=== PATIENT | male | born 1985 | race Caucasian/White ===

== ENCOUNTER → 2019-12-03 15:32 | Outpatient (REF) | payer OTHER, SELFPAY | LOC: ANHLAB 15:32 | PROVIDERS: PCP Internal Medicine; Visit Provider Nurse Practitioner | DX: L91.0 Hypertrophic scar (principal) | CPT/HCPCS: 88305 ==

== ENCOUNTER 2021-08-10 13:19 | Outpatient (CLI) | payer OTHER, SELFPAY ==
--- NOTE | 2021-08-14 12:13 | WPDHOLTEREM ---
Holter/Event Monitor Holter/Event Monitor Date of procedure: 08/10/21 Holter/Event Procedure: 48 Hr Holter Monitor Indications: Cardiac arrhythmia Conclusion: 1. 48 hour holter monitor on 08/10/21. 2. Underlying rhythm is sinus rhythm. HR range 63-119 bpm; average HR 87 bpm. 3. There are 312 premature supraventricular complexes. No supraventricular tachycardia. 4. There are 10 premature ventricular complexes. No ventricular tachycardia. 5. No sinoatrial or atrioventricular blocks. No significant pauses greater than 2 seconds. 6. No symptoms available for correlation.
== END 2021-08-10 13:20 | disposition home or self-care (01) ==
LOC: ANHCARD 13:22
PROVIDERS: PCP Internal Medicine; Visit Provider Internal Medicine
DX: I49.9 Cardiac arrhythmia, unspecified (principal)
CPT/HCPCS: 93225

== ENCOUNTER 2022-07-29 10:12 | Inpatient (IN) | payer OTHER, SELFPAY ==
[2022-07-29] VITALS (35 sets, daily range): BP systolic 98–141; BP diastolic 53–93; PULSE 82–102; RESP 8–27; TEMP 36.6–37.2; O2SAT 93–100; BMI 38.0
--- NOTE | ~2022-07-29 | XR_ITS ---
EXAMINATION: XR chest 1V INDICATION: Transient alteration of awareness TECHNIQUE: AP view of the chest is obtained. COMPARISON: None available FINDINGS: The lung volumes are low. No pleural effusion or pneumothorax. The cardiomediastinal silhou ette is normal. Calcified pulmonary nodules are consistent with old granulomatous disease. IMPRESSION: 1. No acute cardiopulmonary abnormality. Reviewed, dictated and finalized at location L.
--- NOTE | ~2022-07-29 | CT_ITS ---
EXAMINATION: CT brain wo con INDICATION: Transient alteration of awareness COMPARISON: None TECHNIQUE: Standard unenhanced head CT. The dose-length product (DLP) was 681.00 mGy-cm. The mA was a djusted according to patient size. Iterative reconstruction technique was employed. FINDINGS: There is no intracranial hemorrhage, acute infarction, or abnormal mass lesion. The ventric les are normal. There is no abnormal mass effect or midline shift. The gordon-white matter differentiat ion is normal. The basal cisterns are patent. The orbits are normal. There is mucosal thickening of t he ethmoidal air cells and right maxillary sinus. There are age-indeterminate comminuted nasal bone f ractures. IMPRESSION: 1. No acute intracranial abnormality. 2. Age indeterminate comminuted nasal bone fractures. 3. Sinus disease. Reviewed, dictated and finalized at location L.
--- NOTE | 2022-07-29 10:23 | ECG_ITS ---
Measurements Intervals Dameron Rate: 101 P: 5 NM: 178 QRS: 26 QRSD: 140 T: -17 QT: 344 QTc: 446 Interpretive Statements SINUS TACHYCARDIA RIGHT BUNDLE BRANCH BLOCK [120+ ms QRS DURATION, UPRIGHT V1, 40+ ms S IN I/aVL/V4/V5/V6] NO PREVIOUS ECG AVAILABLE FOR COMPARISON Electronically Signed On 07-29-2022 15:27:33 CDT by Edelmira Ferrara M.D.
[2022-07-29 10:47] LABS: Basophils Percent Auto 0.3 % (0.2-1.2); Eosinophils Absolute Auto 0.1 K/mm3 (0-0.3); Eosinophils Percent Auto 0.5 % (0-4.4); Hemoglobin 13.2 g/dL (14.0-18.0); Immature Granulocyte Absolute 0.02 K/mm3 (0.00-0.031); Immature Granulocyte Percent A 0.2 % (0-0.5); Lymphocytes Absolute Auto 0.56 K/mm3 (0.9-3.2); Lymphocytes Percent Auto 4.6 % (18.3-44.2); Mean Corpuscular Hemoglobin 28.4 pg (26-34); Mean Platelet Volume 11.1 fl (7.4-10.4); Monocytes Absolute Auto 0.7 K/mm3 (0.1-0.6); Monocytes Percent Auto 5.3 % (2.6-8.5); Neutrophils Absolute Auto 10.9 K/mm3 (1.3-6.7); Neutrophils Percent Auto 89.1 % (45.5-73.1); Platelet Count Result 267 k/mm3 (150-375); Red Blood Count 4.65 M/mm3 (4.6-6.20); Red Cell Distribution Width 13.2 % (11.5-14.5); White Blood Count 12.3 K/mm3 (4.5-10.0)
--- NOTE | 2022-07-29 11:03 | ED.GENADULT ---
HPI - General Adult General Chief complaint: Weakness Stated complaint: syncopal episode Time Seen by Provider: 07/29/22 10:30 Source: patient Mode of arrival: ambulatory Limitations: no limitations History of Present Illness HPI narrative: This is a 36-year-old male who presents to the ED with chief complaint of generalized weakness and near syncope. Patient states that he had a nasal surgery last week with Dr. Torres. he was feeling fine after that but in the last few days he has been feeling generally very tired and off. He does state that he has bruising around the eyes from this procedure as well as nasal swelling. Endorses nausea. Reports several episodes of vomiting over the last few days. States he feels very dehydrated. He reports an episode a few days ago where he was walking in the parking lot felt hot and had to go down to the ground. Denies any head injury or true syncope. Denies any current focal deficits or neurologic symptoms. Denies chest pain, shortness of breath, abdominal pain, diarrhea, urinary symptoms, cough. His application lead is Dr. Gallegos He states his sugars have been somewhat low lately because he has not been eating. Related Data Home Medications Medication Instructions Recorded Confirmed empagliflozin 10 mg tablet 10 mg PO DAILY 04/07/22 04/13/22 (Jardiance) tirzepatide 7.5 mg/0.5 mL 7.5 mg subcut WEEKLY 04/07/22 04/13/22 subcutaneous pen injector (Mounjaro) lisinopril 40 mg tablet 40 mg PO DAILY 04/13/22 04/13/22 Allergies Allergy/AdvReac Type Severity Reaction Status Date / Time cat dander Allergy Unknown Verified 07/29/22 18:15 Review of Systems Review of Systems: CONSTITUTIONAL: See HPI EYES: Denies visual changes, redness, or discharge. ENT: Denies rhinorrhea, congestion, sore throat, or otalgia. CARDIOVASCULAR: Denies chest pain, palpitations, or edema. RESPIRATORY: Denies cough or dyspnea. GASTROINTESTINAL: See HPI GENITOURINARY: Denies dysuria or hematuria. SKIN: Denies rash or itching. MUSCULOSKELETAL: Denies back pain, joint pain, or myalgia. NEUROLOGIC: See HPI PSYCHIATRIC: Denies anxiety or depression. [facility] Past Medical History Medical History Asthma Depression Encounter for monitoring testosterone replacement therapy Essential hypertension Hypercholesterolemia with hypertriglyceridemia Hypogonadism Insomnia Irregular heart beat Male hypogonadism Skin lesion of left external ear Type 2 diabetes mellitus without complication, with long-term current use of insulin Surgical History Surgical History (Updated 07/29/22 @ 13:51 by Misty Duran NP) H/O rhinoplasty Hx of tympanostomy tubes Family History Family History Father Hypertension Mother Hypertension Skin cancer Social History Social History (Updated 07/29/22 @ 13:52 by Misty Duran NP) 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 Appears dry. HEAD: Normocephalic, atraumatic. EYES: PERRLA and EOMI. raccoon eyes present. ENT: Nares clear, no rhinorrhea or epistaxis. Mucous membranes moist. Oropharynx without tonsillar hypertrophy exudate or other lesions. Mild nasal swelling. NECK: Supple. No adenopathy or masses. CHEST: No respiratory distress. Clear to auscultation. No wheezes rales or rhonchi HEART: Regular rate and rhythm. No murmur heard. Normal peripheral puls
[2022-07-29] MEDS: ONDANSETRON INJ 4 MG/2 ML VIAL IV PUSH ×2 (11:28→22:09)
[2022-07-29] MEDS: SODIUM CHLORIDE 0.9% IV 1,000 ML 999 ML IV CONT ×2 (11:28→11:56)
[2022-07-29 12:18] LABS: Alanine Aminotransferase 34 U/L (6-50); Albumin Level 4.7 g/dL (3.5-5.1); Alkaline Phosphatase 41 U/L (38-126); Anion Gap 11 mmol/L (8-16); Aspartate Amino Transferase 51 U/L (17-59); Bilirubin,Total 0.5 mg/dL (0.2-1.3); Blood Urea Nitrogen 95 mg/dL (9-20); Calcium 8.8 mg/dL (8.4-10.2); Carbon Dioxide 29 mmol/L (22-30); Chloride 93 mmol/L (98-107); Estimated CRCL calculation 29 ml/min; Estimated Glomerular Filt Rate 17; Glucose 245 mg/dL (65-110); Potassium 5.3 mmol/L (3.4-5.0); Sodium 133 mmol/L (137-145)
--- NOTE | 2022-07-29 13:49 | PM.IMHP ---
H&P: HPI History of Present Illness Date/Time: 07/29/22 13:49 Chief Complaint: Weakness Narrative: This is a 36-year-old male patient who recently had a rhinoplasty and a keloid removed from his left ear. The patient has bruising around his eyes. The patient stated that he has generalized weakness and had near syncopal episode today. The patient stated that his father within the last week and that he has not been eating or drinking very well. The patient is insulin-dependent diabetes the patient has been having some nausea as well. He had several episodes of vomiting over the last few days. He stated that he feels very dehydrated. He does have a continuous glucose monitor as well as an insulin pump. However he has not been wearing his continuous glucose monitor due to the cost of the product. The patient stated that he was walking in the parking lot and felt hot and had to sit down on the ground. He denies any head injury or a syncopal episode. No neurological deficits. He does see Dr. Gallegos as his pediatric oncologist. His white count is 12.3. H&H is 13.2 and 40.0. His creatinine is 4.1 which was previously 1.99 BUN is 95 previously 46. GFR cell 17 previously 44. His blood sugars 245. Potassium is 5.3. Sodium 133. The patient is being admitted to inpatient status on the date of service of 07/29/2022. Review of Systems Review of Systems: All systems reviewed & are unremarkable except as noted in HPI and below Constitutional: Constitutional: Reports as per HPI and Reports no additional constitutional complaints Eyes: Eyes: Reports as per HPI and Reports no additional eye complaints ENT: Reports system reviewed and no additional complaints, except as documented and Reports Normal hearing present Cardiovascular: Cardiovascular: Reports no additional cardiovascular complaints Respiratory: Respiratory: Reports no additional respiratory complaints and Reports no additional respiratory complaints Gastrointestinal: Gastrointestinal: Reports as per HPI and Reports no additional gastrointestinal complaints Musculoskeletal: Musculoskeletal: Reports no additional musculoskeletal complaints Integumentary/Breasts: Skin/Breast: Reports system reviewed and no additional complaints, except as docu and Reports as per HPI Neurologic: Reports system reviewed and no additional complaints, except as documented, Reports as per HPI and Reports Normal hearing present Psychiatric: Psychiatric: Reports no additional psychiatric complaints and Reports as per HPI Endocrine: Endocrine: Reports no additional endocrine complaints Hematologic/Lymphatic: Hematologic/Lymphatic: Reports no additional hematologic/lymphatic complaints Allergic/Immunologic: Allergic/Immunologic: Reports no additional allergic/immunologic complaints [facility] Past Medical History Medical History Asthma Depression Encounter for monitoring testosterone replacement therapy Essential hypertension Hypercholesterolemia with hypertriglyceridemia Hypogonadism Insomnia Irregular heart beat Male hypogonadism Skin lesion of left external ear Type 2 diabetes mellitus without complication, with long-term current use of insulin Surgical History Surgical History (Updated 07/29/22 @ 13:51 by Misty Duran NP) H/O rhinoplasty Hx of tympanostomy tubes Family History Family History Father Hypertension Mother Hypertension Skin cancer Social History Social History (Updated 07/29/22 @ 13:52 by Misty Duran NP) 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
[2022-07-29] MEDS: SODIUM CHLORIDE 0.9% IV 1,000 ML 125 ML IV CONT ×2 (14:50→22:09)
[2022-07-29 16:41] LABS: Appearance Urine Clear (Clear); Bacteria Urine None Seen /hpf; Bilirubin Urine Negative (Negative); Blood Urine Negative (Negative); Color Urine Yellow (Yellow); Glucose Urine UA 3+ mg/dL (Negative); Ketones Urine Negative (Negative); Leukocyte Esterase Ur Negative LEU/UL (Negative); Nitrate Urine Negative (Negative); Non Pathogenic Casts 0-2; Protein Urine Trace mg/dL (Negative); RBC Urine 0-2 /hpf (0-2); Specific Grav Ur 1.017 (1.001-1.035); Squamous Epithelial Cell Urine None seen /hpf (Few); Urobilinogen Urine 0.2 mg/dL (<2.0); WBC Urine 0-5 /hpf; pH Urine 5.5 (5.0-9.0)
[2022-07-29 16:49] LABS: Add Urine Microscopic? YES
--- NOTE | 2022-07-29 18:10 | ADMGEN ---
This patient, Harvey Camara, was admitted to Medical Room 341-01. Patient/family oriented to hospital policies and general routines including ID bracelet, bed and alarms, visiting hours, pain management, procedures, bathroom and other care routines, personal items, smoking policy, room service/diet, and visiting hours. Information on how to activate the Rapid Response Team has been discussed. Patient/Family are encouraged to report perceived risks to care and to ask questions if they do not understand what they are told or what they should do.
[2022-07-29 18:25] LABS: Glucose Point of Care 86 mg/dl (65-105)
[2022-07-29] MEDS: carvediloL 25 MG TABLET PO (20:34)
[2022-07-29] MEDS: traZODone HCL 50 MG TABLET 100 MG PO (20:35)
[2022-07-29] MEDS: GABAPENTIN 300 MG CAPSULE PO (20:35)
[2022-07-29] MEDS: TIZANIDINE HCL 4 MG TABLET PO (20:35)
[2022-07-29 20:52] LABS: Anion Gap 6 mmol/L (8-16); Blood Urea Nitrogen 81 mg/dL (9-20); Calcium 8.7 mg/dL (8.4-10.2); Carbon Dioxide 35 mmol/L (22-30); Chloride 98 mmol/L (98-107); Estimated CRCL calculation 41 ml/min; Estimated Glomerular Filt Rate 24; Glucose 113 mg/dL (65-110); Potassium 4.5 mmol/L (3.4-5.0); Sodium 139 mmol/L (137-145)
[2022-07-29 21:14] LABS: Hemoglobin A1C 7.4 % (<5.7)
[2022-07-29 21:36] LABS: Glucose Point of Care 108 mg/dl (65-105)
[2022-07-30] VITALS (7 sets, daily range): BP systolic 104–145; BP diastolic 77–90; PULSE 76–93; RESP 17–18; TEMP 36.6–37.1; O2SAT 98–100; BMI 38.0
[2022-07-30] MEDS: SODIUM CHLORIDE 0.9% IV 1,000 ML 125 ML IV CONT ×3 (05:39→22:59)
[2022-07-30 05:44] LABS: Basophils Absolute Auto 0.1 K/mm3 (0.0-0.1); Basophils Percent Auto 0.8 % (0.2-1.2); Eosinophils Absolute Auto 0.2 K/mm3 (0-0.3); Eosinophils Percent Auto 2.9 % (0-4.4); Hematocrit 39.1 % (42.0-52.0); Hemoglobin 12.2 g/dL (14.0-18.0); Immature Granulocyte Absolute 0.01 K/mm3 (0.00-0.031); Immature Granulocyte Percent A 0.2 % (0-0.5); Lymphocytes Absolute Auto 1.47 K/mm3 (0.9-3.2); Lymphocytes Percent Auto 23.6 % (18.3-44.2); Mean Corpuscular HGB Conc 31.2 g/dl (32-36); Mean Corpuscular Hemoglobin 27.5 pg (26-34); Mean Corpuscular Volume 88.1 fl (80-100); Mean Platelet Volume 10.6 fl (7.4-10.4); Monocytes Absolute Auto 0.4 K/mm3 (0.1-0.6); Monocytes Percent Auto 6.9 % (2.6-8.5); Neutrophils Absolute Auto 4.1 K/mm3 (1.3-6.7); Neutrophils Percent Auto 65.6 % (45.5-73.1); Platelet Count Result 232 k/mm3 (150-375); Red Blood Count 4.44 M/mm3 (4.6-6.20); Red Cell Distribution Width 13.2 % (11.5-14.5); White Blood Count 6.2 K/mm3 (4.5-10.0)
[2022-07-30 05:56] LABS: Lactic Acid Reflex 0.6 mmol/L (0.7-2.0)
[2022-07-30 05:59] LABS: Alanine Aminotransferase 31 U/L (6-50); Albumin Level 4.2 g/dL (3.5-5.1); Alkaline Phosphatase 31 U/L (38-126); Anion Gap 5 mmol/L (8-16); Aspartate Amino Transferase 53 U/L (17-59); Bilirubin,Total 0.4 mg/dL (0.2-1.3); Blood Urea Nitrogen 64 mg/dL (9-20); Calcium 8.7 mg/dL (8.4-10.2); Carbon Dioxide 35 mmol/L (22-30); Chloride 101 mmol/L (98-107); Estimated CRCL calculation 47 ml/min; Estimated Glomerular Filt Rate 28; Glucose 83 mg/dL (65-110); Magnesium 2.8 mg/dL (1.6-2.3); Potassium 4.4 mmol/L (3.4-5.0); Sodium 141 mmol/L (137-145)
[2022-07-30 06:52] LABS: Thyroid Stimulating Hormone Reflex 0.887 uIU/mL (0.465-4.68)
[2022-07-30 08:37] LABS: Glucose Point of Care 100 mg/dl (65-105)
[2022-07-30] MEDS: carvediloL 25 MG TABLET PO ×2 (08:40→20:29)
[2022-07-30] MEDS: ATORVASTATIN 40 MG TABLET 80 MG PO (08:41)
[2022-07-30] MEDS: GABAPENTIN 300 MG CAPSULE PO ×3 (08:41→17:01)
[2022-07-30] MEDS: amLODIPine BESYLATE 5 MG TABLET 10 MG PO (08:41)
[2022-07-30] MEDS: EMPAGLIFLOZIN 10 MG TABLET PO (08:41)
[2022-07-30] MEDS: OMEGA 3 POLYUNSAT FATTY ACIDS 1 GM CAP 4 GM PO (08:42)
[2022-07-30] MEDS: FENOFIBRATE NANOCRYSTALLIZED 145 MG TABLET PO (08:42)
[2022-07-30 12:02] LABS: Glucose Point of Care 110 mg/dl (65-105)
--- NOTE | 2022-07-30 13:30 | PM.IMPN ---
Progress Note: A&P Assessment and Plan (1) YESENIA (acute kidney injury): Code(s): N17.9 - Acute kidney failure, unspecified Status: Acute Assessment and Plan: Patient presented with overall weakness and near-syncope Patient admits not be eating or drinking as much as he should BUN creatinine elevated upon admission at 4.1 currently creatinine is 2.6 Could be an YESENIA or in acute on chronic kidney injury IV fluids currently going Seems to be getting better Avoid nephrotoxic medications Trend labs . (2) Essential hypertension: Code(s): I10 - Essential (primary) hypertension Status: Acute Assessment and Plan: Current blood pressure 132/77 Continue with Norvasc and carvedilol Hold hydrochlorothiazide lisinopril Trend blood pressure (3) Type 2 diabetes mellitus without complication, with long-term current use of insulin: Code(s): E11.9 - Type 2 diabetes mellitus without complications; Z79.4 - custodial (current) use of insulin Status: Acute Assessment and Plan: The patient has an insulin pump but cannot afford the continuous glucose monitor. A1c 7.4 Hold metformin Insulin per his pump Trend glucose Adjust therapy as indicated (4) Hypercholesterolemia with hypertriglyceridemia: Code(s): E78.2 - Mixed hyperlipidemia Status: Acute Assessment and Plan: Continue with atorvastatin and fenofibrate Continue with Swengel 3 (5) Depression: Qualifiers: Depression Type: unspecified Qualified Code(s): F32.9 - Major depressive disorder, single episode, unspecified Code(s): F32.9 - Major depressive disorder, single episode, unspecified Status: Acute Assessment and Plan: Continue trazodone Time Spent With Patient Time: 38 minutes Time with patient: Greater than 35 minutes Subjective Date/time seen: 07/30/22 153 Interval history: 07/30/221529 Patient is lying in bed and seems to be okay. He denies any current chest pain, shortness a breath, nausea, vomiting, diarrhea constipation. Soaked him about his diabetes that did seem to be pretty well controlled he did state that he had a lot going on this week and thinks that everything just kind of caught up with him. He also stated that he was not really able to eat the hospital food as it did not taste good to him. Will changes diet is he does seem to be well controlled as is hemoglobin A1c is 7.4. Creatinine trending down currently at 2.60. 06/01/23? 13:49 This is a 36-year-old male patient who recently had a rhinoplasty and a keloid removed from his left ear.? The patient has bruising around his eyes.? The patient stated that he has generalized weakness and had near syncopal episode today.? The patient stated that his father within the last week and that he has not been eating or drinking very well.? The patient is insulin-dependent diabetes the patient has been having some nausea as well.? He had several episodes of vomiting over the last few days.? He stated that he feels very dehydrated.? He does have a continuous glucose monitor as well as an insulin pump.? However he has not been wearing his continuous glucose monitor due to the cost of the product.? The patient stated that he was walking in the parking lot and felt hot and had to sit down on the ground.? He denies any head injury or a syncopal episode.? No neurological deficits.? 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 His white count is 12.3.? H&H is 13.2 and 40.0.? His creatinine is 4.1 which was previously 1.99 BUN is 95 previously 46.? GFR cell 17 previously 44.? His blood sugars 245.? Potassium is 5.3.? Sodium 133.? The patient is being admitted to inpatient status on the date of service of 07/29/2022. Review of Systems Review of Systems: All systems reviewed & are unremarkable except as noted in HPI and below Exam Narrative
[2022-07-30 16:46] LABS: Glucose Point of Care 105 mg/dl (65-105)
[2022-07-30 20:01] LABS: Glucose Point of Care 114 mg/dl (65-105)
[2022-07-30] MEDS: TIZANIDINE HCL 4 MG TABLET PO (20:29)
[2022-07-30] MEDS: traZODone HCL 50 MG TABLET 100 MG PO (20:30)
[2022-07-31 05:03] VITALS: BP 151/90; PULSE 88; RESP 18; TEMP 36.7; O2SAT 99
[2022-07-31 06:11] LABS: Alanine Aminotransferase 31 U/L (6-50); Albumin Level 4.3 g/dL (3.5-5.1); Alkaline Phosphatase 35 U/L (38-126); Anion Gap 10 mmol/L (8-16); Aspartate Amino Transferase 46 U/L (17-59); Bilirubin,Total 0.4 mg/dL (0.2-1.3); Blood Urea Nitrogen 35 mg/dL (9-20); Calcium 9.4 mg/dL (8.4-10.2); Carbon Dioxide 27 mmol/L (22-30); Chloride 103 mmol/L (98-107); Estimated CRCL calculation 71 ml/min; Estimated Glomerular Filt Rate 46; Glucose 104 mg/dL (65-110); Potassium 4.3 mmol/L (3.4-5.0); Sodium 140 mmol/L (137-145)
--- NOTE | 2022-07-31 07:00 | PM.DS ---
DS: Admitting Diagnosis Discharge Date 07/31/22 0700 Admitting Diagnosis YESENIA, Near syncope DS: Discharge Diagnosis Discharge Diagnosis (1) YESENIA (acute kidney injury): Code(s): N17.9 - Acute kidney failure, unspecified Status: Acute Assessment and Plan: Patient presented with overall weakness and near-syncope Patient admits not be eating or drinking as much as he should BUN creatinine elevated upon admission at 4.1 currently creatinine is 1.70 Could be an YESENIA or in acute on chronic kidney injury IV fluids currently going Seems to be getting better Avoid nephrotoxic medications Trend labs . (2) Essential hypertension: Code(s): I10 - Essential (primary) hypertension Status: Acute Assessment and Plan: Current blood pressure 151/90 Continue with Norvasc and carvedilol Hold hydrochlorothiazide lisinopril Trend blood pressure (3) Type 2 diabetes mellitus without complication, with long-term current use of insulin: Code(s): E11.9 - Type 2 diabetes mellitus without complications; Z79.4 - emt intermediate (current) use of insulin Status: Acute Assessment and Plan: The patient has an insulin pump but cannot afford the continuous glucose monitor. A1c 7.4 Hold metformin Insulin per his pump Trend glucose Adjust therapy as indicated Glucose 104 (4) Hypercholesterolemia with hypertriglyceridemia: Code(s): E78.2 - Mixed hyperlipidemia Status: Acute Assessment and Plan: Continue with atorvastatin and fenofibrate Continue with Roy 3 (5) Depression: Qualifiers: Depression Type: unspecified Qualified Code(s): F32.9 - Major depressive disorder, single episode, unspecified Code(s): F32.9 - Major depressive disorder, single episode, unspecified Status: Acute Assessment and Plan: Continue trazodone DS: Summary Hospital Course Hospital Course: Patient is a 36-year-old male with a past medical history of recent rhinoplasty, hypertension, diabetes who presented to the ED with a near syncopal episode. Patient has had quite a few life events happened over the last few days including his father passing and recent surgery and was not eating or drinking well. He had several episodes of vomiting over the last few days prior to coming to the hospital. Upon arrival it was noted that his creatinine was 4.1 and is currently 1.7. Potassium was also elevated at 5.3 and is currently 4.3. Patient was started on IV fluids YESENIA. Head CT was performed and showed no intracranial abnormality. Chest x-ray showed no cardiopulmonary abnormality. A1c was 7.4 dietitian did see the patient due to notable hyperglycemia most likely related to the dehydration. Glucose has been stable an well within a controlled range. Patient does have an insulin pump and does well with checking his blood sugars Often. Currently patient is not complaining of any chest pain, shortness a breath, nausea, vomiting, diarrhea or constipation. Currently patient is stable for discharge and is ready to be at home. Labs and vital signs remained stable today. Status at Discharge Functional status at discharge: independent ambulation Overall status at discharge: patient is progressing back to baseline Time Spent with Patient Time attestation: Total time spent providing and/or coordinating discharge services: 35 minutes Time spent: Greater than 30 minutes Specific discharge activities: Diagnostic testing, chart review, developing a treatment plan, education, care coordination documentation, physical exam, result review Exam Narrative: General: well-nourished, well-appearing 36-year-old male, sitting up in bed, comfortable, NARD Neuro: awake, alert and oriented x4, speech clear, no focal neuro deficits noted HEENMT: normocephalic, atraumatic, EOMI, sclerae anicteric, moist oral mucosa, bruises around estrellita
[2022-07-31] MEDS: GABAPENTIN 300 MG CAPSULE PO (08:10)
[2022-07-31] MEDS: EMPAGLIFLOZIN 10 MG TABLET PO (08:10)
[2022-07-31] MEDS: OMEGA 3 POLYUNSAT FATTY ACIDS 1 GM CAP 4 GM PO (08:10)
[2022-07-31] MEDS: ATORVASTATIN 40 MG TABLET 80 MG PO (08:10)
[2022-07-31] MEDS: carvediloL 25 MG TABLET PO (08:10)
[2022-07-31] MEDS: amLODIPine BESYLATE 5 MG TABLET 10 MG PO (08:10)
[2022-07-31] MEDS: FENOFIBRATE NANOCRYSTALLIZED 145 MG TABLET PO (08:10)
[2022-07-31 08:22] LABS: Glucose Point of Care 131 mg/dl (65-105)
== END 2022-07-31 10:00 | disposition home or self-care (01) | DRG 684 ==
LOC: ANHED 13:41 → ANH3MEDSUR 14:34 → ANH3MED 07-30 08:23 → ANH3MEDSUR 08-02 13:48
PROVIDERS: Emergency Medicine; Nurse Practitioner; Admitting Provider Chiropractor; Emergency Provider Physician Assistant; PCP Internal Medicine; Visit Provider Nurse Practitioner
DX: N17.9 Acute kidney failure, unspecified (principal); E86.0 Dehydration; R55 Syncope and collapse; E11.9 Type 2 diabetes mellitus without complications; E78.2 Mixed hyperlipidemia; F32.9 Major depressive disorder, single episode, unspecified; I10 Essential (primary) hypertension; Z96.41 Presence of insulin pump (external) (internal); Z79.84 Long term (current) use of oral hypoglycemic drugs
CPT/HCPCS: 36415; 70450; 71045; 80048; 80053; 81001; 82948; 83036; 83605; 83735; 84443; 85025; 93005; 96361; 96374; 99285; A9270; G0378; J2405; J7030

== ENCOUNTER 2023-07-08 11:55 | Outpatient (CLI) | payer OTHER, SELFPAY ==
--- NOTE | ~2023-07-08 | XR_ITS ---
XR abdomen/kub 1V DATE: 07/08/2023 12:22 INDICATION: Abdominal pain and distention, nausea, vomiting TECHNIQUE: Supine AP views COMPARISON: None FINDINGS: Gas distended nondilated small bowel segments overlie the right abdomen suggesting mild kendy namic ileus or enteritis. No bowel obstruction is evident. No visceromegaly or significant abnormal calcification is detected. The psoas shadows appear intact. The lung bases appear clear. Degenerative spurring of the thoracic spine. IMPRESSION: Suggestion of mild adynamic ileus Reviewed, dictated and finalized at Location A. Reviewed, dictated and finalized at location A.
[2023-07-08 12:40] LABS: CRP < 0.5 mg/dL (<1.0)
[2023-07-08 12:47] LABS: Erythrocyte Sedimentation Rate 23 mm/hr (0-20)
[2023-07-13 03:58] LABS: Immunoglobulin A 197 mg/dL (47-310); TTG IGA AB <1.0 U/mL
== END 2023-07-08 11:56 | disposition home or self-care (01) ==
LOC: ANHLAB 11:57
PROVIDERS: PCP Internal Medicine; Visit Provider Nurse Practitioner
DX: R19.15 Other abnormal bowel sounds (principal); R11.2 Nausea with vomiting, unspecified; R14.0 Abdominal distension (gaseous); R15.9 Full incontinence of feces; R68.81 Early satiety
CPT/HCPCS: 36415; 74018; 82784; 84443; 85652; 86140; 86364

== ENCOUNTER 2023-07-19 16:17 | Outpatient (CLI) | payer OTHER, SELFPAY ==
--- NOTE | ~2023-07-19 | US_ITS ---
EXAMINATION: US renal BI DATE: 07/19/2023 16:50 INDICATION: Stage IIIa chronic kidney disease TECHNIQUE: Multiple ultrasound grayscale images of the kidneys were obtained. COMPARISON: None. FINDINGS: The right kidney measures 12.4 x 6.0 x 5.9 cm. The left kidney measures 12.7 x 6.4 x 5.2 cm. The kidn eys demonstrate normal echogenicity. There is no hydronephrosis in either kidney. No stones identifi ed. The bladder is normal with bilateral ureteral jets visualized on color Doppler. IMPRESSION: 1. Normal kidneys without hydronephrosis. Reviewed, dictated and finalized at location A.
== END 2023-07-19 16:18 | disposition home or self-care (01) ==
PROVIDERS: PCP Internal Medicine; Visit Provider Internal Medicine Nephrology
DX: N18.31 Chronic kidney disease, stage 3a (principal)
CPT/HCPCS: 76775

== ENCOUNTER 2023-07-22 07:17 | Outpatient (CLI) | payer OTHER, SELFPAY ==
--- NOTE | ~2023-07-22 | NM_ITS ---
EXAM: NM gastric emptying study DATE: 07/22/2023 13:25 INDICATION: Gastroparesis. TECHNIQUE: A gastric emptying study was performed using the methodology of Ne GOMEZ, et al. J Nucl Med 2007; 48:568-572. The patient was given a meal consisting of 2 scrambled eggs labeled with 1 mCi Tc-99m sulfur colloid, 2 slices of toast, two packages of jam, and approximately 120 mL of water. Si multaneous anterior and posterior 1-min images of the abdomen were obtained with the patient supine a t multiple time points over a total period of 4 hours. The geometric mean of anterior and posterior v iews was determined, and the percentage retention was calculated for each time point. COMPARISON: None. FINDINGS: Gastric retention of the radiotracer-labeled meal was 49%, 5%, and 1% at the 1-hour, 2-elidia r, and 4-hour time points, respectively. With this technique, apparent rapid gastric emptying is sugg ested by <30% gastric retention at 1 hour. Delayed gastric emptying is defined by gastric retention o f >90% at 1 hour, >60% retention at 2 hours, or >10% retention at 4 hours. IMPRESSION: 1. Normal gastric emptying. Reviewed, dictated and finalized at location A. IMPRESSION: 1. Normal gastric emptying.
== END 2023-07-22 07:18 | disposition home or self-care (01) ==
LOC: ANHIMG 07:20
PROVIDERS: PCP Internal Medicine; Visit Provider Nurse Practitioner
DX: R10.9 Unspecified abdominal pain (principal); R14.0 Abdominal distension (gaseous); R68.81 Early satiety; R11.2 Nausea with vomiting, unspecified; E11.9 Type 2 diabetes mellitus without complications; Z79.4 Long term (current) use of insulin
CPT/HCPCS: 78264; A9541

== ENCOUNTER 2023-07-29 14:17 | Outpatient (CLI) | payer OTHER, SELFPAY ==
--- NOTE | ~2023-07-29 | CT_ITS ---
EXAMINATION: CT abdomen pelvis w con DATE: 07/29/2023 14:52 INDICATION: Unspecified abdominal pain. Diarrhea. Abdominal distention. TECHNIQUE: Computed tomography (CT) of the abdomen and pelvis was performed with 100 mL Omnipaque 350 intravenous contrast. Automated exposure control and iterative reconstruction technique were employe d. The dose-length product was 1177.52 mGy-cm. COMPARISON: None. FINDINGS: The visualized portions of the lung bases demonstrate minimal atelectasis. Calcified left l jase nodules are consistent with old granulomatous disease. No pleural effusion. The heart size is nor mal. No pericardial effusion. The liver, spleen, gallbladder, pancreas, adrenal glands, and kidneys a re normal. There are no dilated loops of bowel. The appendix is normal. There are no pathologically e nlarged lymph nodes. There is no free intraperitoneal fluid. There is mild thoracic and lumbar spondy losis. IMPRESSION: 1. No etiology for the patient's symptoms. Reviewed, dictated and finalized at location E.
[2023-07-29 14:48] LABS: Estimated Glomerular Filt Rate 43
== END 2023-07-29 14:18 | disposition home or self-care (01) ==
LOC: ANHIMG 14:18
PROVIDERS: PCP Internal Medicine; Visit Provider Nurse Practitioner
DX: R93.5 Abnormal findings on diagnostic imaging of other abdominal regions, including retroperitoneum (principal); R19.15 Other abnormal bowel sounds
CPT/HCPCS: 74177; Q9967

== ENCOUNTER 2023-08-01 03:01 | Day surgery (SDC) | payer OTHER, SELFPAY ==
[2023-07-18 13:43] VITALS: BMI 32.4
[2023-08-01 12:22] VITALS: BP 126/78; PULSE 86; RESP 18; TEMP 36.2; O2SAT 100
--- NOTE | 2023-08-01 12:23 | SUR.PREOP ---
Dexcom reading 123 for blood sugar- no new orders per Dr Fairchild
[2023-08-01] MEDS: LACTATED RINGERS 1,000 ML 150 ML IV CONT (12:30)
--- NOTE | 2023-08-01 12:39 | WPDHPUPDATE1 ---
History and Physical Update Update Date/Time: 08/01/23 12:39 History and Physical has been reviewed, including an updated exam of the patient. There are NO changes in the patient's condition. Risks, benefits, and alternatives have been discussed and questions answered. Patient agrees to proceed with procedure.
--- NOTE | 2023-08-01 12:50 | WPDANESEPPF ---
Anes - Initial Pre Proc Eval Procedure: Operation Date: 08/01/23 13:30 Proposed Procedures p Esophagogastroduodenoscopy & Colonoscopy - Mian Salgado MD Date/Time: 08/01/23 12:50 Surgeon: Mian Salgado MD Pre Op Diagnosis: N&V,Diarrhea,Abd.Pain, Incontinence of Feces Patient Data Age: 37 Gender: M Height: 1.78 m Weight: 102.3 kg Last Vital Signs Temp 97.1 F L 08/01/23 12:22 Pulse 86 08/01/23 12:22 Resp 18 08/01/23 12:22 BP 126/78 08/01/23 12:22 Pulse Ox 100 08/01/23 12:22 O2 Del Method Room Air 08/01/23 12:22 Allergies Allergy/AdvReac Type Severity Reaction Status Date / Time cat dander Allergy Unknown Verified 08/01/23 12:20 Home Medications Medication Instructions Recorded Confirmed Type gabapentin 300 mg capsule 300 mg PO TID #270 caps 10/13/21 07/18/23 Rx needle (disp) 18 G 18 gauge x 1 #100 ea 10/13/21 07/18/23 Rx syringe with needle 3 mL 22 gauge #100 ea 10/13/21 07/18/23 Rx x 3/4 (Syringe 3cc/22Gx3/4 ) trazodone 100 mg tablet 100 mg PO QHS #90 tabs 11/17/21 07/18/23 Rx sildenafil 50 mg tablet 50 mg PO DAILY PRN sexual activity 02/08/22 07/18/23 Rx #10 tabs empagliflozin 10 mg tablet 10 mg PO DAILY 04/07/22 07/18/23 History (Jardiance) semaglutide 0.25 mg or 0.5 mg (2 1 mg subcut WEEKLY 07/29/22 07/18/23 History mg/3 mL) subcutaneous pen injector (Ozempic) insulin lispro 100 unit/mL 1 sliding scale dose subcut 09/20/22 07/18/23 Rx subcutaneous solution (Humalog .COMPLEX #4 vials U-100 Insulin) insulin syringe-needle U-100 1 mL #100 ea 11/02/22 07/18/23 Rx 28 gauge x 1/2 (BD Insulin Syringe) flash glucose sensor (FreeStyle #3 ea 03/23/23 07/18/23 Rx Dior 14 Day Sensor kit) amlodipine 10 mg tablet 10 mg PO DAILY #90 tabs 03/29/23 07/18/23 Rx carvedilol 25 mg tablet See Rx Instructions .Route 03/30/23 07/18/23 Rx .COMPLEX #180 tabs lisinopril 40 mg tablet 40 mg PO DAILY #90 tabs 04/14/23 07/18/23 Rx metformin 1,000 mg tablet 1,000 mg PO BID #180 tabs 04/14/23 07/18/23 Rx vortioxetine 20 mg tablet 20 mg PO DAILY 04/14/23 07/18/23 History (Trintellix) atorvastatin 80 mg tablet 80 mg PO DAILY #90 tabs 05/02/23 07/18/23 Rx colestipol 1 gram tablet 1 g PO BID #60 tabs 07/08/23 07/18/23 Rx hydrochlorothiazide 25 mg tablet 25 mg PO DAILY #90 tabs 07/08/23 07/18/23 Rx rifaximin 550 mg tablet (Xifaxan) 550 mg PO TID 14 days #42 tabs 07/08/23 07/18/23 Rx tizanidine 6 mg capsule 6 mg PO BID PRN muscle spasticity 07/14/23 07/18/23 Rx #60 caps metoclopramide HCl 5 mg tablet 5 mg PO .HS #30 tabs 07/18/23 07/18/23 Rx testosterone cypionate 200 mg/mL 180 mg (0.9 mL) IM WEEKLY #4 mL 07/18/23 07/18/23 Rx intramuscular oil omega 2-wvu-asx-fish oil 1,000 mg 4 cap PO DAILY #120 caps 07/26/23 08/01/23 Rx (120 mg-180 mg) capsule fenofibrate nanocrystallized 145 145 mg PO DAILY #90 tabs 07/27/23 08/01/23 Rx mg tablet Patient hx anesthesia problems: none Family hx anesthesia problems: none Results Review: All pre-operative results and documents have been reviewed as part of the pre-operative evaluation. [facility] Past Medical History Medical History Asthma Depression Encounter for monitoring testosterone replacement therapy Essential hypertension Hypercholesterolemia with hypertriglyceridemia Hypogonadism Insomnia Irregular heart beat Male hypogonadism Skin lesion of left external ear Type 2 diabetes mellitus without complication, with long-term current use of insulin Surgical History Surgical History H/O rhinoplasty Hx of tympanostomy tubes Family History Family History Father Hypertension Mother Hypertension Skin cancer Social History Social History Social History:
[2023-08-01 13:09] VITALS: BP 101/67; PULSE 91; RESP 19; O2SAT 98
[2023-08-01 13:19] VITALS: BP 111/73; PULSE 89; RESP 19; O2SAT 97
--- NOTE | 2023-08-01 13:19 | SUR.PHASEII ---
Patient's blood sugar on his Dexcom in post op was 107.
[2023-08-01 13:29] VITALS: BP 128/88; PULSE 80; RESP 13; O2SAT 99
--- NOTE | 2023-08-01 13:45 | SUR.OPER ---
EGD: Start 12:47, End 12:51 Colonoscopy: Start 12:55, End 13:04
== END 2023-08-01 13:33 | disposition home or self-care (01) ==
PROVIDERS: PCP Internal Medicine; Referring Provider Nurse Practitioner; Visit Provider Internal Medicine Gastroenterology
PROC: 0DJ08ZZ Inspection of Upper Intestinal Tract, Via Natural or Artificial Opening Endoscopic (ICD-10-PCS; CPT 43235; principal; 2023-08-01 13:30)
DX: K63.5 Polyp of colon (principal); K57.30 Diverticulosis of large intestine without perforation or abscess without bleeding
CPT/HCPCS: 45385; 45380; 43239; 88305; J2704; J7120

== ENCOUNTER 2024-06-17 17:44 | Emergency (ER) | payer OTHER, SELFPAY ==
[2024-06-17] VITALS (8 sets, daily range): BP systolic 146–158; BP diastolic 88–106; PULSE 73–85; RESP 17–18; TEMP 36.4; O2SAT 98–100
--- NOTE | ~2024-06-17 | XR_ITS ---
EXAMINATION: XR chest 2V Exam Date/Time: 06/17/2024 17:55 CDT HISTORY: UPPER RIGHHT CP X 2 WEEKS Comparison: 07/29/2022. RESULT: Lines, tubes, and devices: None. Lungs and pleura: Clear. Cardiomediastinal silhouette: Stable. Other: No acute osseous or upper abdominal finding. IMPRESSION: No acute cardiopulmonary process. Reviewed, dictated and finalized at location K.
--- OUTSIDE RECORDS SUMMARY | 2024-06-17 17:46 | XMS_ITS | Clinical Summary ---
Author Organization [facility] Address [address] [place] [address] Care Team Providers Care Turn Operator Name Role Phone Santhosh Franco DO Primary Care Provider [phone] Allergies No known active allergies Medications gabapentin (NEURONTIN) 300 mg capsuleIndications:D iabetic Peripheral Neuropathy Take 1 capsule (300 mg total) by mouth 3 (three) times a day 12/11/19 22 Active lisinopriL (PRINIVIL,ZESTRIL) 40 mg tabletIndications:hy pertension Take 1 tablet (40 mg total) by mouth every morning 12/20/19 22 Active hydroCHLOROthiazide (HYDRODIURIL) 25 mg tabletIndications:hy pertension Take 1 tablet (25 mg total) by mouth every morning 12/02/19 22 Active metFORMIN (GLUCOPHAGE) 1,000 mg tabletIndications:ty pe 2 diabetes mellitus Take 1 tablet (1,000 mg total) by mouth 2 (two) times a day with meals 08/22/19 22 Active sildenafiL (VIAGRA) 50 mg tablet Take 1 tablet (50 mg total) by mouth as needed for erectile dysfunction 06/10/19 22 Active testosterone cypionate (DEPO-TESTOTERONE) 200 mg/mL injectionIndications :Androgen Deficiency,Tuesday every 7 days 08/22/19 22 Active tiZANidine (ZANAFLEX) 4 mg tabletIndications:Mu scle Spasm Take 2 tablets (8 mg total) by mouth nightly 11/21/19 22 Active traZODone (DESYREL) 100 mg tabletIndications:ma santiago depressive disorder Take 1 tablet (100 mg total) by mouth nightly 12/18/19 22 Active fenofibrate nanocrystallized (TRICOR) 145 mg tabletIndications:hy perlipidemia Take 1 tablet (145 mg total) by mouth nightly 07/30/19 22 Active cholecalciferol, vitamin D3, 2,000 unit tablet,chewableIndic ations:supplement for kidneys Take 1 tablet by mouth every morning Active atorvastatin (LIPITOR) 80 mg tabletIndications:hy perlipidemia Take 1 tablet (80 mg total) by mouth nightly 12/11/19 22 Active amLODIPine (NORVASC) 10 mg tabletIndications:hy pertension Take 1 tablet (10 mg total) by mouth nightly 11/05/19 22 Active carvediloL (COREG) 12.5 mg tabletIndications:hy pertension,also fast heart beat Take 2 tablets (25 mg total) by mouth 2 (two) times a day with meals 12/02/19 22 Active empagliflozin (JARDIANCE) 25 mg tablet Take 1 tablet (25 mg total) by mouth daily 30 tablet 5 03/03/19 23 Active Additional Information Patient taking differently:25 mg oralEvery morning, Indications: type 2 diabetes mellitus, Informant: Self, Reported on 07/05/2022 insulin aspart (NovoLOG) 100 unit/mL vial for injectionIndications :Type 2 diabetes mellitus with hyperglycemia, with long-term current use of insulin (HCC) take via insulin pump up to 150 units daily 30 mL 6 06/05/19 23 Active Additional Information Patient taking differently:, take via insulin pump up to 150 units daily,Indications: type 2 diabetes mellitus, Informant: Self, Reported on 07/05/2022 semaglutide (OZEMPIC) 1 mg/dose (4 mg/3 mL) pen injector injection Inject 1 mg under the skin every 7 days 9 mL 2 06/09/19 23 Active Additional Information Patient taking differently:1 mg subcutaneous Every 7 days,Indications: type 2 diabetes mellitus, Tuesday, Informant: Self, Reported on 07/05/2022 Trintellix 10 mg tabletIndications:memo henderson depressive disorder Take 1 tablet (10 mg total) by mouth nightly 06/15/19 23 Active omega 1-ohu-ufp-fish oil 1,000 mg (120 mg-180 mg) capsuleIndications:h ypertriglyceridemia Take 2 capsules (2,000 mg total) by mouth 2 (two) times a day 06/14/19 Active HYDROcodone-acetamin ophen (NORCO) 5-325 mg per tabletIndications:Pa in Take 1 tablet by mouth every 6 (six) hours as needed for pain 12 tablet 07/23/19 Active Additional Information Patient not taking.Reported on 07/28/2022 sodium chloride (OCEAN) 0.65 % nasal spray Administer 1 spray into each nostril 4 (four) times a day 15 mL 07/23/19 Active Active Problems Problem Noted Date Diagnosed Date Nasal valve stenosis 06/14/2022 Deviated nasal septum 06/14/2022 Nasal turbinate hypertrophy 06/14/2022 Closed fracture of nasal bones 06/14/2022 Keloid of skin 06/14/2022 Hyperlipidemia associated with type 2 diabetes nazanin gaspar 02/25/2022 Assessment & Plan (02/25/2022 4:05 PM PRECINCT CAPTAIN): Chronic problem. On statin therapy, no changes. Hypertension associated with type 2 diabetes mary litus 02/25/2022 Assessment & Plan (02/25/2022 4:05 PM PRECINCT CAPTAIN): Controlled on current medications, no changes. Insulin pump status 02/25/2022 Assessment & Plan (02/25/2022 3:17 PM PRECINCT CAPTAIN): Change pump settings to: Workday: BR 2.0 (48) Sick day program BR 3.5 (64) CR 6 SF 25 Target 100-130 AIT 4 hrs Morbid (severe) obesity due to excess calories 1 Assessment & Plan (12/22/2021 9:43 AM CDT): Importance of diet and exercise discussed Mounjaro will help with weight loss as well Body mass index 40.0-44.9, adult (CMS/HCC) 12/22 Type 2 diabetes mellitus wit h hyperglycemia, with long-term current use of insulin 12/22/2021 Assessment & Plan (02/25/2022 4:06 PM PRECINCT CAPTAIN): Chronic problem, significantly improving. Increase Mounjaro to 7.5 mg weekly. He'll call if tolerating well after 1-2 months and can try increasing further. Will send rx for jardiance to see if covered (Farxiga is not), but samples given today in interim. Lower pump settings as below, call between visits if persistent hypoglycemia so we can continue adjusting. Assessment & Plan (12/22/2021 9:43 AM CDT): Hba1c was Lab Results Component Value Date HGBA1C 8.9 12/22/2021 today, indicating inadequate DM control Goal Hba1c and blood glucose explained Diet and exercise were advised Prevention and treatment of hyypoglcyemia were discussed with the patient Blood glucose monitoring : FSL Adjustment to medications: Continue pump at current settings Start Mounjaro Start Farxiga ( also for kidney protection ) Type 2 diabetes mellitus with proteinuria 2021 Assessment & Plan (12/22/2021 9:44 AM CDT): Importance of better glycemic controlled discussed Start Farxiga, for kidney protection Surgical History Surgery Date Site/Laterality Comments KELOID EXCISION 02/28/2003 - 02/28/2004 Left x7 since the age of 15 Medical History Medical History Date Comments Type 2 diabetes mellitus (HCC) Hypertension Hyperlipidemia Anxiety Depression Keloid 2004 Family History Medical History Relation Name Comments Cancer Father Hypertension Father Cancer Maternal Grandfather Cancer Maternal Grandmother Diabetes Maternal Grandmother Stroke Maternal Grandmother Autoimmune disease Mother Cancer Mother Hypertension Mother Anesthesia problems Neg Hx Relation Name Status Comments Father Maternal Grandfather Maternal Grandmother Mother Social History Tobacco Use Types Packs/Day Years Used Date Smoking Tobacco: Never Smokeless Tobacco: Never AUDIT-C Answer Date Recorded Frequency of Alcohol Consumption Not on file 07/22/2022 Q2: How many drinks containi ng alcohol do you have on a typical day when you are drinking? Patient does not drink Frequency of Binge Drinking Not on file 06/29 PHQ-2 Answer Date Recorded PHQ-2 Total Score (If total score is 3 or more points, staff should administer the PHQ-9) 0 12/22/2021 Personal Safety Answer Date Recorded Have you ever been in or are you currently in a harmful physical or emotional relationship or is someone making you feel afraid or unsafe? Denies 07/22/2022 Sex and Gender Information Value Date Recorded Sex Assigned at Not on file Legal Sex Male 5:27 AM PRECINCT CAPTAIN Gender Identity Not on file Sexual Orientation Not on file Obstetrics History Last Filed Vital Signs Vital Sign Reading Time Taken Comments Blood Pressure 136/77 07/22/2022 12:55 PM CDT Pulse 81 07/22/2022 1:00 PM CDT Temperature 36.6 C (97.9 F) 07/22/2022 9:55 AM CDT Respiratory Rate 19 07/22/2022 1:00 PM CDT Oxygen Saturation 97% 07/22/2022 1:00 PM CDT Inhaled Oxygen Concentration - - Weight 116.9 kg (257 lb 12.8 oz) 07/22/2022 5:45 AM CDT Height 177.8 cm (5' 10 ) 07/22/2022 5:45 AM CDT Body Mass Index 36.99 07/22/2022 5:45 AM CDT Plan of Treatment Health Maintenance Due Date Last Done Comments Albumin Creatinine Ratio, Urine 1986 Hepatitis C Screening 1986 eGFR 1986 Dilated Eye Exam 1986 Varicella Vaccines (1 of 2 - 13+ 2-dose series) 09/04/1999 Hepatitis B Screening 2004 Regular Well Visit/Exam 18-64 2004 Pneumococcal vaccine <65 (1 of 2 - PCV) 2005 Lipid Panel 01/20/2015 01/20/2014, 01/18/2014 Hemoglobin A1C 08/26/2022 02/25/2022, 12/22/2021 Depression Screening 12/22/2022 12/22/2021 Foot Exam 12/22/2022 12/22/2021 Covid-19 Vaccine (3 - 2023-2 5 season) 2023 11/20/2020, 10/30/2020 Influenza Vaccine (#1) 2023 10/30/2020 DTaP/Tdap/Td Vaccine (2 - Td or Tdap) 09/09/2031 09/08/2021 HPV Vaccines Aged Out No longer eligi ble based on patient's age to complete this topic Procedures Procedure Name Priority Date/Time Associated Diagnosis Comments POCT HEMOGLOBIN A1C Routine 02/25/2022 2 :43 PM PRECINCT CAPTAIN Type 2 diabetes mellitus with hyperglycemia, with long-term current use of insulin (HCC) SERUM LIPID PANEL Routine 01/20/2014 9:3 9 PM PRECINCT CAPTAIN from Last 3 Months or Most Recently Relevant to Health Maintenance Results * POCT hemoglobin A1c (02/25/2022 2:43 PM PRECINCT CAPTAIN) Hemoglobin A1C, POC 6.7 Blood 02/25/2022 2:43 PM PRECINCT CAPTAIN Leticia WINSTON POINT OF CARE TEST EMA HANSON Final Result * (ABNORMAL) Serum lipid panel (01/20/2014 9:39 PM PRECINCT CAPTAIN) Cholesterol 1080(H) 0 - 200 mg/dl HISTORICAL RESULTS Comment: Lipemic Interpretive Data Desirable: <200 mg/dL Borderline high: 200-239 mg/dL High: >240 mg/dL Literature Reference: National Cholesterol Education Program (NCEP) Expert Panel on Detection, Evaluation, and Treatment of High Blood Cholesterol in Adults (Adult Treatment Panel III). Circulation 2004; 110:227. Current interpretive data was last revised on 2005. LDL N/A 0 - 129 mg/dl HISTORICAL RESULTS Comment: {Lipemic Cannot be calculated; triglycerides above 400 mg/dL.} Interpretive Data Optimal: < 100 mg/dL Near Optimal: 100 - 129 mg/dL Borderline High: 130 - 159 mg/dL High: > 160 mg/dL Literature Reference: See Cholesterol Current interpretive data was last revised on 06. Triglycerides 6915(H) 0 - 150 mg/dl HISTORICAL RESULTS Comment: Lipemic Interpretive Data Desirable: < 150 mg/dL Borderline High: 150 - 199 mg/dL High: > 200 mg/dL Literature Reference: See Cholesterol Current interpretive data was last revised on 06. Non-HDL cholesterol, calculated 1040 mg/dl HISTORICAL RESULTS Comment: Lipemic Interpretive Data When triglycerides are >200 mg/dL, non-HDL C is a secondary target of therapy, with a goal 30 mg/dL higher than the identified LDL-C goal. Reference: See Cholesterol Reference. Current interpretive data was last revised 2011. HDL 40 40 - 199 mg/dl HISTORICAL RESULTS Comment: Lipemic Interpretive Data Less than 40 mg/dL - low; A major risk factor for heart disease. Greater than or equal to 60 mg/dL - High; considered protective of heart disease. Literature Reference: See Cholesterol Current interpretive data was last revised on 2007. Serum 01/20/2014 9:39 PM PRECINCT CAPTAIN Kamla Otero MD LAB BLOOD ORDERABLES Final Resul t HISTORICAL RESULTS from Last 3 Months or Most Recently Relevant to Health Maintenance Insurance [facility] [employer] [facility] PPO Care Teams Turn Operator Relationship Specialty Start Date End Date Santhosh Franco DO PCP - General Internal Medicine 08/07/21
--- OUTSIDE RECORDS SUMMARY | 2024-06-17 17:46 | XMS_ITS | Referral Summary ---
Author Organization [facility] Address Formerly [facility] [place] [address] Care Team Providers Care Trip Motor Operator Name Role Phone Santhosh Franco DO Primary Care Provider [phone] Allergies No known active allergies Medications gabapentin [...] by mouth nightly 06/15/19 23 Active omega 7-ati-tlh-fish oil 1,000 mg (120 mg-180 mg) capsuleIndications:h [...] 02/25/2022 Assessment & Plan (02/25/2022 4:05 PM API PRODUCT MANAGER): Chronic problem. On statin therapy, no changes. Hypertension associated with type 2 diabetes mary litus 02/25/2022 Assessment & Plan (02/25/2022 4:05 PM API PRODUCT MANAGER): Controlled on current medications, no changes. Insulin pump status 02/25/2022 Assessment & Plan (02/25/2022 3:17 PM API PRODUCT MANAGER): Change pump settings to: Workday: BR 2.0 [...] 12/22/2021 Assessment & Plan (02/25/2022 4:06 PM API PRODUCT MANAGER): Chronic problem, significantly improving. Increase Mounjaro to [...] controlled discussed Start Farxiga, for kidney protection Social History Tobacco Use Types Packs/Day Years [...] on file Legal Sex Male 5:27 AM API PRODUCT MANAGER Gender Identity Not on file Sexual Orientation Not on file Last Filed Vital Signs Vital Sign Reading [...] 07/22/2022 5:45 AM CDT Plan of Treatment Not on file Procedures Procedure Name Priority Date/Time Associated Diagnosis Comments POCT HEMOGLOBIN A1C Routine 02/25/2022 2 :43 PM API PRODUCT MANAGER Type 2 diabetes mellitus with hyperglycemia, with long-term current use of insulin (HCC) SERUM LIPID PANEL Routine 01/20/2014 9:3 9 PM API PRODUCT MANAGER from Last 3 Months or Most Recently Relevant to Health Maintenance Results * POCT hemoglobin A1c (02/25/2022 2:43 PM API PRODUCT MANAGER) Hemoglobin A1C, POC 6.7 Blood 02/25/2022 2:43 PM API PRODUCT MANAGER Leticia WINSTON POINT OF CARE TEST EMA HANSON Final Result * (ABNORMAL) Serum lipid panel (01/20/2014 9:39 PM API PRODUCT MANAGER) Cholesterol 1080(H) 0 - 200 mg/dl HISTORICAL [...] revised on 2007. Serum 01/20/2014 9:39 PM API PRODUCT MANAGER us Kamla Otero MD LAB BLOOD ORDERABLES Final Resul t HISTORICAL RESULTS from Last 3 Months or Most Recently Relevant to Health Maintenance Insurance AETNA [facility] PPO [facility] PPO Care Teams Trip Motor Operator Relationship Specialty Start Date End Date Santhosh Franco DO PCP - General Internal Medicine 08/07/21
--- OUTSIDE RECORDS SUMMARY | 2024-06-17 17:46 | XMS_ITS | Clinical Summary ---
Author Organization [facility] Address [address] [place] [phone] Phone Care Team Providers Care Customer Consultant Name Role Phone Santhosh Franco DO Primary Care Provider [phone] Allergies No known active allergies Medications amLODIPine (NORVASC) 10 MG tablet Take 10 mg by mouth 1 (one) time each day 2 Active atorvastatin (LIPITOR) 80 MG tablet atorvastatin 80 mg tablet Active buPROPion XL (WELLBUTRIN XL) 300 MG 24 hr tablet Take 300 mg by mouth 1 (one) time each day 2 Active DULoxetine (CYMBALTA) [address] capsule Take 60 mg by mouth every night 2 Active fenofibrate (TRICOR) 145 MG tablet Take 145 mg by mouth 1 (one) time each day 2 Active gabapentin (NEURONTIN) 300 MG capsule gabapentin 300 mg capsule Active hydroCHLOROthia zide (HYDRODIURIL) 25 MG tablet Take 25 mg by mouth 1 (one) time each day 2 Active Insulin Lispro (HumaLOG) 100 UNIT/ML solution Humalog U-100 Insulin 100 unit/mL subcutaneous solution Active lisinopril (PRINIVIL) 40 MG tablet 2 Active metFORMIN (GLUCOPHAGE) 1000 MG tablet 2 Active sildenafil (VIAGRA) 50 MG tablet TAKE 1 TABLET BY MOUTH ONCE DAILY NEEDED FOR SEXUAL ACTIVITY TAKE 30 MINUTES TO 4 HOURS BEFORE SEXUAL ACTIVITY 2 Active B-D 3CC LUER-MARY JANE SYR 23GX1 23G X 1 3 ML misc USE 1 SYRINGE ONCE A WEEK 2 Active testosterone cypionate (DEPO-TESTOTERO NE) 200 MG/ML injection 2 Active tiZANidine (ZANAFLEX) 4 MG tablet 2 Active traZODone (DESYREL) 100 MG tablet 2 Active omega-3 acid ethyl esters (LOVAZA) 1 g capsule TAKE 4000 MG BY MOUTH DAILY 2 Active Cholecalciferol (Vitamin D3) 50 MCG (1999 UT) chewable tablet Chew Acti ve carvedilol (COREG) 12.5 MG tablet Take 1 tablet (12.5 mg total) by mouth 2 (two) times a day with meals 180 tablet 3 2 Active Active Problems Problem Noted Date Diagnosed Date Essential hypertension 2021 Diabetes mellitus without me ntion of complication, type II or unspecified type, not stated as uncontrolled 2021 Persistent proteinuria 2021 Dyslipidemia 2021 Hypercalcemia 2021 Hyponatremia 2021 Carpal tunnel syndrome 08/26/2021 Family History Medical History Relation Comments Kidney cancer Paternal Grandmother Kidney disease Neg Hx Relation Status Comments Paternal Grandmother Social History Tobacco Use Types Packs/Day Years Used Date Smoking Tobacco: Never Smokeless Tobacco: Never Alcohol Use Standard Drinks/Week Comments Not Currently 0 (1 standard drink = 0.6 oz pur e alcohol) sober since 2018 Sex and Gender Information Value Date Recorded Sex Assigned at Not on file Legal Sex Male 10:20 AM MDT Gender Identity Not on file Sexual Orientation Not on file Last Filed Vital Signs Vital Sign Reading Time Taken Comments Blood Pressure 134/70 11/04/2021 1:24 PM CDT Pulse 72 11/04/2021 1:24 PM CDT Temperature 37.2 C (98.9 F) 11/04/2021 1:24 PM CDT Respiratory Rate - - Oxygen Saturation - - Inhaled Oxygen Concentration - - Weight 125 kg (275 lb) 11/04/2021 1:24 PM CDT Height 170.2 cm (5' 7 ) 11/04/2021 1:24 PM CDT Body Mass Index 43.07 11/04/2021 1:24 PM CDT Plan of Treatment Health Maintenance Due Date Last Done Comments Influenza Vaccine (Season Ended) 2024 Insurance [facility] Care Teams Customer Consultant Relationship Specialty Start Date End Date Santhosh Franco DO [address] [place] [id number] PCP - General Internal Medicine 08/04/21
--- OUTSIDE RECORDS SUMMARY | 2024-06-17 17:46 | XMS_ITS | Continuity of Care Document ---
Author Organization [facility] Address [id number] [place] [address] [address] [place] [address] Phone Care Team Providers Care House Cleaner Name Role Phone Kee OD, Nikolas Unavailable Unavailable Advance Directives Directive Yes / No Effective Date File Name No Information Encounters Encounter Description Practice Location Reason(s) For Visit Diagnoses Date Provider Providers Copied on Encounter [facility], [address], [place], [place], [id number], [place] tel:[phone] [facility] No Information May-0 4-200 6 Kee OD Nikolas. [address] , [address], [place], [address], [place]. tel:[phone] Family History Family Member Type Diagnosis Age At Onset No Information Payers Payer name Insurance type Covered democrat ID Authoriza tion(s) No Information Social History [...]
--- OUTSIDE RECORDS SUMMARY | 2024-06-17 17:46 | XMS_ITS | Patient Health Record ---
Author Organization [facility] As [facility] Address [address] [place] [address] Care Team Providers Care Chief Pharmacist Name Role Phone Santhosh Franco DO Primary Care Provider Luke Vo Unavailable [phone] Magen Zapata Unavailable [phone] Migration, Provider Unavailable Unavailable Allergies No Known Allergies Reason For Referral No Information Medications Medication SIG (Take, Route, Frequency, Duration) Notes Start Date End Date Status busPIRone HCl 5 MG 1 tablet Oral Twice a day for 90 days Active Ondansetron 8 MG Oral 4 Not-Taking busPIRone HCl 5 MG TAKE 1 TABLET BY MOUTH TWICE A DAY for 90 Active QUEtiapine Fumarate 150 MG 1 tablet at bedtime Orally Once a day for 90 days Active Auburn-3 1000 MG Oral 4 Not-Taking Trintellix 20 MG 1 tablet Orally Once a day for 90 days Active FREESTYLE SPEEDY 14 DAY SENSOR KIT *Reorder from Bubbl for eRx and Interaction Alerts* 4 Not-Taking Atorvastatin Calcium 80 MG Oral 4 Active Loperamide HCl 2 MG Oral 06/29/19 2 4 Not-Taking Colestipol HCl 1 GM Oral 06/29/19 2 4 Active Fenofibrate 145 MG Oral 4 Active Sildenafil Citrate 50 MG Oral 4 Active Famotidine 20 MG Oral 4 Active Ozempic (1 MG/DOSE) 4 MG/3ML Subcutaneous *Pick strength-form from Bubbl for eRX* 4 Active hydroCHLOROthiazide 25 MG Oral 4 Active metFORMIN HCl 1000 MG Oral 4 Active Jardiance 25 MG Oral 4 Active INSULIN SYRINGE U-100 WITH NEEDLE 1 ML 28 GAUGE X 1/2 *Reorder from [email or web address] for eRx and Interaction Alerts* 4 Not-Taking Testosterone Cypionate 200 MG/ML Intramuscular 4 Active amLODIPine Besylate 10 MG Oral 4 Active Carvedilol 25 MG Oral 4 Active Wenfr-7-iruc Ethyl Esters 1 GM Oral 4 Active Metoclopramide HCl 5 MG Oral 4 Active HUMALOG MIX 50-50 100 unit/mL (50-50) Subcutaneous *Reorder from [email or web address] for eRx and Interaction Alerts* 4 Active traZODone HCl 100 MG TAKE 2 TABLETS BY MOUTH EVERY DAY AT BEDTIME for 90 Active QUEtiapine Fumarate 50 MG TAKE 2 TABLETS BY MOUTH AT BEDTIME for 90 Active LUER-MARY JANE SYRINGE-NEEDLE 3 mL 23 x 1 MISCELLANEOUS *Reorder from [email or web address] for eRx and Interaction Alerts* 4 Not-Taking Omeprazole 20 MG Oral 4 Not-Taking Lisinopril 40 MG Oral 4 Active tiZANidine HCl 6 MG Oral 06/29/19 2 4 Active Immunizations Vaccine Route Administration Date Status Comme nts Pfizer Biontech Covid-19 Vac cine 2nd dose Unknown 10/30/2020 Administered Pfizer Biontech Covid-19 Vac cine 2nd dose Unknown 11/20/2020 Administered Social History Tobacco Use: Social History Observation Description Date Details (start date - stop date) Never Smoker NA - NA Sex Assigned At : Social History Observation Description Sex Assigned At Male Tobacco Control (Standard) Question Answer Notes Tobacco use: Nonsmoker Problems Problem Type SNOMED Code ICD Code Onset Dates Problem Status W/U Status Risk Notes Problem Severe recurrent major depression without psychotic features (81065036) Major depressive disorder, recurrent severe without psychotic features (F33.2) 06/29/19 24 Active confirmed Problem Generalized anxiety disorder (83322010) Generalized anxiety disorder (F41.1) 06/29/19 24 Active confirmed Problem Primary insomnia (3302458) Primary insomnia (F51.01) 09/25/19 23 Active confirmed Problem Essential hypertension (54636889) Essential hypertension (I10) 09/04/19 22 Active confirmed Problem Hyperglycemia due to type 2 diabetes mellitus (607687651836972) Type 2 diabetes mellitus with hyperglycemia, with long-term current use of insulin (E11.65) 12/23/19 22 Active confirmed Problem Hyperlipidemia due to type 2 diabetes mellitus (disorder) (480161581640383) Hyperlipidemia associated with type 2 diabetes mellitus (E11.69) 02/26/20 22 Active confirmed Problem Peripheral circulatory disorder associated with diabetes mellitus (192248625) Hypertension associated with type 2 diabetes mellitus (E11.59) 02/26/20 Active confirmed Vital Signs Heart Rate 111 /min 03/08/2024 Height-cm 177.80 cm 03/08/2024 Blood pressure diastolic 100 mm Hg 03/08/2024 Weight-kg 117.48 kg 03/08/2024 Height 70.00 in 03/08/2024 Blood pressure systolic 160 mm Hg 03/08/2024 Weight 259 lbs 03/08/2024 BMI 37.16 kg/m2 03/08/2024 Encounters Encounter Location Date Provider Diagnosis [facility] [address] [facility] [address] [place] [address] 06/29/2023 Luke Lucy Major depressive disorder, recurrent severe without psychotic features F33.2 ; Post-traumatic stress disorder, chronic F43.12 and Generalized anxiety disorder F41.1 [facility] [address] [facility] [address] [place] [address] 08/03/2023 Luke Lucy Major depressive disorder, recurrent severe without psychotic features F33.2 ; Generalized anxiety disorder F41.1 and Primary insomnia F51.01 [facility] [address] [place] [address] 09/14/2023 Magen Zapata Generalized anxiety disorder F41.1 and Recurrent major depressive episodes, moderate F33.1 [facility] [address] [place] [address] 10/18/2023 Magen Zapata Generalized anxiety disorder F41.1 and Recurrent major depressive episodes, moderate F33.1 [facility] [address] [place] [address] 11/03/2023 Luke Lucy Major depressive disorder, recurrent severe without psychotic features F33.2 ; Generalized anxiety disorder F41.1 and Primary insomnia F51.01 [place] [address] [place] [address] 11/14/2023 Magen Zapata Generalized anxiety disorder F41.1 and Recurrent major depressive episodes, moderate F33.[address] [place] [address] 12/12/2023 Magen Zapata Generalized anxiety disorder F41.1 and Recurrent major depressive episodes, moderate F33.1 [place] [address] [place] [address] 01/02/2024 Magen Zapata Generalized anxiety disorder F41.1 and Depression, major, recurrent, moderate F33.1 [place] [address] [place] [address] 02/08/2024 Magen Zapata Generalized anxiety disorder F41.1 and Recurrent major depressive episodes, moderate F33.1 [place] [address] [place] [address] 03/08/2024 Luke Lucy Major depressive disorder, recurrent severe without psychotic features F33.2 ; Type 2 diabetes mellitus with hyperglycemia, with long-term current use of insulin E11.65 ; Hyperlipidemia associated with type 2 diabetes mellitus E11.69 ; Essential hypertension I10 ; Generalized anxiety disorder F41.1 and Primary insomnia F51.01 [place] [address] [facility] [address] [place] [address] 03/12/2024 Magen Zapata Generalized anxiety disorder F41.1 and Depression, major, recurrent, moderate F33.1 [place] [address] [place] [address] 06/11/2024 Magen Zapata Encounter for screening for depression Z13.31 ; Generalized anxiety disorder F41.1 and Recurrent major depressive episodes, moderate F33.1 [place] [address] [place] [address] 06/29/2023 Provider Migration [place] [address] [place] [address] 07/12/2023 [facility] [address] [facility] [address] [place] [address] 07/16/2023 [facility] [address] [facility] [address] [facility] [address] [place] [address] 07/17/2023 [facility] [address] [facility] [address] [facility] [address] [place] [address] 08/02/2023 Luke Ayala Assessments Encounter Date Diagnosis (ICD Code) Assessment Notes Treatment Notes Treatment Clinical Notes Section Notes 08/03/2023 Major depressive disorder, recurrent severe without psychotic features (ICD-10 - F33.2) Anxiety and Depression - Assessment: The patient reports significant improvement in both anxiety and depression symptoms since the last visit. He attributes this improvement to the new medication regimen and coping strategies discussed in previous sessions. - Plan: - Continue current medications, including Trintellix 20mg daily, Buspar 5mg twice a day, and quetiapine 100mg per night. - Encourage the patient to continue utilizing coping strategies and monitor for any changes in symptoms. - Schedule a follow-up appointment in three months. Grief Related to Loss of Father - Assessment: The patient has made progress in coping with the loss of his father, including engaging in a balloon release ceremony and discussing his feelings with his girlfriend. He also attempted to involve his brother in the process, but respected his brother's decision to cope in his own way. - Plan: - Encourage the patient to continue seeking support from loved ones and engaging in healthy coping strategies. - Monitor for any signs of complicated grief or worsening mental health symptoms. Hypertension - Assessment: The patient is currently taking amlodipine and atorvastatin for hypertension management. - Plan: - Continue current medications for hypertension. - Encourage the patient to maintain a healthy lifestyle, including regular exercise, a balanced diet, and stress management. - Ensure the patient has a 90-day prescription for his medications. Follow-up - Plan: - Schedule a follow-up appointment in three months to assess the patient's progress and make any necessary adjustments to the treatment plan. 08/03/2023 Generalized anxiety disorder (ICD-10 - F41.1) Generalized Anxiety Disorder: Care Instructions material was published Anxiety and Depression - Assessment: The patient reports significant improvement in both anxiety and depression symptoms since the last visit. He attributes this improvement to the new medication regimen and coping strategies discussed in previous sessions. - Plan: - Continue current medications, including Trintellix 20mg daily, Buspar 5mg twice a day, and quetiapine 100mg per night. - Encourage the patient to continue utilizing coping strategies and monitor for any changes in symptoms. - Schedule a follow-up appointment in three months. Grief Related to Loss of Father - Assessment: The patient has made progress in coping with the loss of his father, including engaging in a balloon release ceremony and discussing his feelings with his girlfriend. He also attempted to involve his brother in the process, but respected his brother's decision to cope in his own way. - Plan: - Encourage the patient to continue seeking support from loved ones and engaging in healthy coping strategies. - Monitor for any signs of complicated grief or worsening mental health symptoms. Hypertension - Assessment: The patient is currently taking amlodipine and atorvastatin for hypertension management. - Plan: - Continue current medications for hypertension. - Encourage the patient to maintain a healthy lifestyle, including regular exercise, a balanced diet, and stress management. - Ensure the patient has a 90-day prescription for his medications. Follow-up - Plan: - Schedule a follow-up appointment in three months to assess the patient's progress and make any necessary adjustments to the treatment plan. 09/14/2023 Generalized anxiety disorder (ICD-10 - F41.1) 38 year old single never , but engaged, male seen today for initial assessment to start therapy. Client stated that he has seen Dr Ayala for medication therapy for the past two years. Hx of depression and anxiety reported by client which he believes have been present since early teens. Believes anxiety has been worse through out his life. One psych admission at the age of 22 due to hx of cutting self. No hx of suicide attempts reported by client but does endorse a hx of suicidal thoughts.Noted that he has has been sober for five years after abusing alcohol from the ages of 19 to 33. Stated that he would get black out drunk a couple of times a week if not more often. Client is the oldest of two, younger brother who is a recoving addict and has served time in [facility] due to drug related offenses. Relationship with mother is great per his report. Added that he had a really close relationship with father who last year of a heart attack. Noted that he was the one that father. 09/14/2023 Recurrent major depressive episodes, moderate (ICD-10 - F33.1) 38 year old single never , but engaged, male seen today for initial assessment to start therapy. Client stated that he has seen Dr Ayala for medication therapy for the past two years. Hx of depression and anxiety reported by client which he believes have been present since early teens. Believes anxiety has been worse through out his life. One psych admission at the age of 22 due to hx of cutting self. No hx of suicide attempts reported by client but does endorse a hx of suicidal thoughts.Noted that he has has been sober for five years after abusing alcohol from the ages of 19 to 33. Stated that he would get black out drunk a couple of times a week if not more often. Client is the oldest of two, younger brother who is a recoving addict and has served time in [facility] due to drug related offenses. Relationship with mother is great per his report. Added that he had a really close relationship with father who last year of a heart attack. Noted that he was the one that father. 10/18/2023 Generalized anxiety disorder (ICD-10 - F41.1) 38 year old single never , but engaged, male seen today for initial assessment to start therapy. Client stated that he has seen Dr Ayala for medication therapy for the past two years. Hx of depression and anxiety reported by client which he believes have been present since early teens. Believes anxiety has been worse through out his life. One psych admission at the age of 22 due to hx of cutting self. No hx of suicide attempts reported by client but does endorse a hx of suicidal thoughts.Noted that he has has been sober for five years after abusing alcohol from the ages of 19 to 33. Stated that he would get black out drunk a couple of times a week if not more often. Client is the oldest of two, younger brother who is a recoving addict and has served time in [facility] due to drug related offenses. Relationship with mother is great per his report. Added that he had a really close relationship with father who last year of a heart attack. Noted that he was the one that father. 10/18/2023 Recurrent major depressive episodes, moderate (ICD-10 - F33.1) 38 year old single never , but engaged, male seen today for initial assessment to start therapy. Client stated that he has seen Dr Ayala for medication therapy for the past two years. Hx of depression and anxiety reported by client which he believes have been present since early teens. Believes anxiety has been worse through out his life. One psych admission at the age of 22 due to hx of cutting self. No hx of suicide attempts reported by client but does endorse a hx of suicidal thoughts.Noted that he has has been sober for five years after abusing alcohol from the ages of 19 to 33. Stated that he would get black out drunk a couple of times a week if not more often. Client is the oldest of two, younger brother who is a recoving addict and has served time in [facility] due to drug related offenses. Relationship with mother is great per his report. Added that he had a really close relationship with father who last year of a heart attack. Noted that he was the one that father. 11/03/2023 Major depressive disorder, recurrent severe without psychotic features (ICD-10 - F33.2) Anxiety and Depression - Assessment: Patient reports improvement in communication with partner and overall mental health after attending therapy sessions. Patient has increased therapy frequency from monthly to bi-weekly. - Plan: - Continue current medications: Sertraline 20 mg once daily and Bupropion twice daily. - Encourage patient to maintain regular therapy sessions, currently scheduled every two weeks. Weight Gain - Assessment: Patient has been off Ozempic for 1-2 months due to automobile and property underwriter change and is experiencing weight gain. - Plan: - Advise patient to contact primary care provider to discuss possibility of resuming Ozempic 1 mg weekly. - Encourage patient to maintain a healthy diet and exercise regimen. Quetiapine ER Cost Concerns - Assessment: Patient reports high cost of quetiapine ER and wishes to switch back to regular quetiapine. - Plan: - Discontinue quetiapine ER and prescribe regular quetiapine at the same dosage. - Send prescription to patient's preferred pharmacy ([facility] in [facility] Partner's Mental Health - Assessment: Patient's partner is experiencing depression and has been off medication due to lack of insurance. Partner recently started a job at [employer] and will have insurance in 90 days. - Plan: - Encourage patient to inform partner to schedule an appointment with Dr. Ayala 90 days from now, and to discuss insurance status at that time. - Offer to write off the cost of the initial appointment only if partner does not have insurance by then. Follow-up - Plan: Schedule a follow-up appointment in three months to assess patient's progress and medication effectiveness. 11/14/2023 Generalized anxiety disorder (ICD-10 - F41.1) 38 year old single never , but engaged, male seen today for initial assessment to start therapy. Client stated that he has seen Dr Ayala for medication therapy for the past two years. Hx of depression and anxiety reported by client which he believes have been present since early teens. Believes anxiety has been worse through out his life. One psych admission at the age of 22 due to hx of cutting self. No hx of suicide attempts reported by client but does endorse a hx of suicidal thoughts.Noted that he has has been sober for five years after abusing alcohol from the ages of 19 to 33. Stated that he would get black out drunk a couple of times a week if not more often. Client is the oldest of two, younger brother who is a recoving addict and has served time in [facility] due to drug related offenses. Relationship with mother is great per his report. Added that he had a really close relationship with father who last year of a heart attack. Noted that he was the one that father. 11/14/2023 Recurrent major depressive episodes, moderate (ICD-10 - F33.1) 38 year old single never , but engaged, male seen today for initial assessment to start therapy. Client stated that he has seen Dr Ayala for medication therapy for the past two years. Hx of depression and anxiety reported by client which he believes have been present since early teens. Believes anxiety has been worse through out his life. One psych admission at the age of 22 due to hx of cutting self. No hx of suicide attempts reported by client but does endorse a hx of suicidal thoughts.Noted that he has has been sober for five years after abusing alcohol from the ages of 19 to 33. Stated that he would get black out drunk a couple of times a week if not more often. Client is the oldest of two, younger brother who is a recoving addict and has served time in [facility] due to drug related offenses. Relationship with mother is great per his report. Added that he had a really close relationship with father who last year of a heart attack. Noted that he was the one that father. 12/12/2023 Generalized anxiety disorder (ICD-10 - F41.1) 38 year old single never , but engaged, male seen today for initial assessment to start therapy. Client stated that he has seen Dr Ayala for medication therapy for the past two years. Hx of depression and anxiety reported by client which he believes have been present since early teens. Believes anxiety has been worse through out his life. One psych admission at the age of 22 due to hx of cutting self. No hx of suicide attempts reported by client but does endorse a hx of suicidal thoughts.Noted that he has has been sober for five years after abusing alcohol from the ages of 19 to 33. Stated that he would get black out drunk a couple of times a week if not more often. Client is the oldest of two, younger brother who is a recoving addict and has served time in [facility] due to drug related offenses. Relationship with mother is great per his report. Added that he had a really close relationship with father who last year of a heart attack. Noted that he was the one that father. 12/12/2023 Recurrent major depressive episodes, moderate (ICD-10 - F33.1) 38 year old single never , but engaged, male seen today for initial assessment to start therapy. Client stated that he has seen Dr Ayala for medication therapy for the past two years. Hx of depression and anxiety reported by client which he believes have been present since early teens. Believes anxiety has been worse through out his life. One psych admission at the age of 22 due to hx of cutting self. No hx of suicide attempts reported by client but does endorse a hx of suicidal thoughts.Noted that he has has been sober for five years after abusing alcohol from the ages of 19 to 33. Stated that he would get black out drunk a couple of times a week if not more often. Client is the oldest of two, younger brother who is a recoving addict and has served time in [facility] due to drug related offenses. Relationship with mother is great per his report. Added that he had a really close relationship with father who last year of a heart attack. Noted that he was the one that father. 01/02/2024 Generalized anxiety disorder (ICD-10 - F41.1) 38 year old single never , but engaged, male seen today for initial assessment to start therapy. Client stated that he has seen Dr Ayala for medication therapy for the past two years. Hx of depression and anxiety reported by client which he believes have been present since early teens. Believes anxiety has been worse through out his life. One psych admission at the age of 22 due to hx of cutting self. No hx of suicide attempts reported by client but does endorse a hx of suicidal thoughts.Noted that he has has been sober for five years after abusing alcohol from the ages of 19 to 33. Stated that he would get black out drunk a couple of times a week if not more often. Client is the oldest of two, younger brother who is a recoving addict and has served time in [facility] due to drug related offenses. Relationship with mother is great per his report. Added that he had a really close relationship with father who last year of a heart attack. Noted that he was the one that father. 01/02/2024 Depression, major, recurrent, moderate (ICD-10 - F33.1) 38 year old single never , but engaged, male seen today for initial assessment to start therapy. Client stated that he has seen Dr Ayala for medication therapy for the past two years. Hx of depression and anxiety reported by client which he believes have been present since early teens. Believes anxiety has been worse through out his life. One psych admission at the age of 22 due to hx of cutting self. No hx of suicide attempts reported by client but does endorse a hx of suicidal thoughts.Noted that he has has been sober for five years after abusing alcohol from the ages of 19 to 33. Stated that he would get black out drunk a couple of times a week if not more often. Client is the oldest of two, younger brother who is a recoving addict and has served time in [facility] due to drug related offenses. Relationship with mother is great per his report. Added that he had a really close relationship with father who last year of a heart attack. Noted that he was the one that father. 02/08/2024 Generalized anxiety disorder (ICD-10 - F41.1) 38 year old single never , but engaged, male seen today for initial assessment to start therapy. Client stated that he has seen Dr Ayala for medication therapy for the past two years. Hx of depression and anxiety reported by client which he believes have been present since early teens. Believes anxiety has been worse through out his life. One psych admission at the age of 22 due to hx of cutting self. No hx of suicide attempts reported by client but does endorse a hx of suicidal thoughts.Noted that he has has been sober for five years after abusing alcohol from the ages of 19 to 33. Stated that he would get black out drunk a couple of times a week if not more often. Client is the oldest of two, younger brother who is a recoving addict and has served [facility] due to drug related offenses. Relationship with mother is great per his report. Added that he had a really close relationship with father who last year of a heart attack. Noted that he was the one that father. 02/08/2024 Recurrent major depressive episodes, moderate (ICD-10 - F33.1) 38 year old single never , but engaged, male seen today for initial assessment to start therapy. Client stated that he has seen Dr Ayala for medication therapy for the past two years. Hx of depression and anxiety reported by client which he believes have been present since early teens. Believes anxiety has been worse through out his life. One psych admission at the age of 22 due to hx of cutting self. No hx of suicide attempts reported by client but does endorse a hx of suicidal thoughts.Noted that he has has been sober for five years after abusing alcohol from the ages of 19 to 33. Stated that he would get black out drunk a couple of times a week if not more often. Client is the oldest of two, younger brother who is a recoving addict and has served time [facility] due to drug related offenses. Relationship with mother is great per his report. Added that he had a really close relationship with father who last year of a heart attack. Noted that he was the one that father. 03/08/2024 Major depressive disorder, recurrent severe without psychotic features (ICD-10 - F33.2) Insomnia - Assessment: Patient reports difficulty staying asleep, with only 1-3 hours of continuous sleep followed by tossing and turning. Total sleep duration is around 4-5 hours, but interrupted. Patient reports waking up once per night to use the bathroom. - Plan: - Increase quetiapine dosage from 100 mg to 150 mg, one tablet at bedtime. - Monitor sleep quality and duration. - Encourage patient to maintain good sleep hygiene. Depression - Assessment: Patient's score indicates moderate depression. 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 Patient reports feeling more enthusiastic about work lately. - Plan: - Continue Trintellix 20 mg daily. - Encourage patient to continue attending therapy sessions with Magen, which he reports are going well and helping him. - Schedule a follow-up appointment in 3 months or sooner if symptoms worsen. Anxiety - Plan: - Continue buspirone 5 mg twice daily. - Encourage patient to discuss anxiety concerns with Magen during therapy sessions. Hypertension - Assessment: Patient's blood pressure is elevated. He has had a long workday (12-hour shift) and is currently fatigued. Patient reports being up since midnight. - Plan: - Continue current antihypertensive medications (lisinopril 40 mg, carvedilol, amlodipine, hydrochlorothiazi de). - Monitor blood pressure and encourage lifestyle modifications. Diabetes - Assessment: Patient reports no issues with diabetes management. - Plan: - Continue current diabetes medications (Humalog insulin, metformin, Jardiance, Ozempic). - Monitor blood glucose levels and encourage adherence to a diabetic-friendly diet and exercise regimen. - Note: Patient's insurance has changed to [employer], which may affect medication coverage. Dyslipidemia - Plan: - Continue atorvastatin for cholesterol management. - Encourage a heart-healthy diet and regular exercise. Gastrointestinal Issues - Plan: - Continue current medications (metoclopramide, famotidine, colestipol, fenofibrate). - Monitor gastrointestinal symptoms and adjust medications as needed. Erectile Dysfunction - Plan: - Continue Viagra as needed. Musculoskeletal Issues - Plan: - Continue tizanidine as needed for muscle spasms. Other Medications - Plan: - Continue testosterone injections, omega-3 supplements, and Zofran as needed. - Monitor for any changes in insurance coverage and adjust medications accordingly. Follow-up - Plan: - Schedule a follow-up appointment in 3 months or sooner if any issues arise. - Encourage patient to maintain a list of current medications for future appointments to avoid confusion. 03/12/2024 Generalized anxiety disorder (ICD-10 - F41.1) 38 year old single never , but engaged, male seen today for initial assessment to start therapy. Client stated that he has seen Dr Ayala for medication therapy for the past two years. Hx of depression and anxiety reported by client which he believes have been present since early teens. Believes anxiety has been worse through out his life. One psych admission at the age of 22 due to hx of cutting self. No hx of suicide attempts reported by client but does endorse a hx of suicidal thoughts.Noted that he has has been sober for five years after abusing alcohol from the ages of 19 to 33. Stated that he would get black out drunk a couple of times a week if not more often. Client is the oldest of two, younger brother who is a recoving addict and has served time [facility] due to drug related offenses. Relationship with mother is great per his report. Added that he had a really close relationship with father who last year of a heart attack. Noted that he was the one that father. 03/12/2024 Depression, major, recurrent, moderate (ICD-10 - F33.1) 38 year old single never , but engaged, male seen today for initial assessment to start therapy. Client stated that he has seen Dr Ayala for medication therapy for the past two years. Hx of depression and anxiety reported by client which he believes have been present since early teens. Believes anxiety has been worse through out his life. One psych admission at the age of 22 due to hx of cutting self. No hx of suicide attempts reported by client but does endorse a hx of suicidal thoughts.Noted that he has has been sober for five years after abusing alcohol from the ages of 19 to 33. Stated that he would get black out drunk a couple of times a week if not more often. Client is the oldest of two, younger brother who is a recoving addict and has served time [facility] due to drug related offenses. Relationship with mother is great per his report. Added that he had a really close relationship with father who last year of a heart attack. Noted that he was the one that father. 06/11/2024 Generalized anxiety disorder (ICD-10 - F41.1) 38 year old single never , but engaged, male seen today for initial assessment to start therapy. Client stated that he has seen Dr Ayala for medication therapy for the past two years. Hx of depression and anxiety reported by client which he believes have been present since early teens. Believes anxiety has been worse through out his life. One psych admission at the age of 22 due to hx of cutting self. No hx of suicide attempts reported by client but does endorse a hx of suicidal thoughts.Noted that he has has been sober for five years after abusing alcohol from the ages of 19 to 33. Stated that he would get black out drunk a couple of times a week if not more often. Client is the oldest of two, younger brother who is a recoving addict and has served time [facility] due to drug related offenses. Relationship with mother is great per his report. Added that he had a really close relationship with father who last year of a heart attack. Noted that he was the one that father. 06/11/2024 Encounter for screening for depression (ICD-10 - Z13.31) 38 year old single never , but engaged, male seen today for initial assessment to start therapy. Client stated that he has seen Dr Ayala for medication therapy for the past two years. Hx of depression and anxiety reported by client which he believes have been present since early teens. Believes anxiety has been worse through out his life. One psych admission at the age of 22 due to hx of cutting self. No hx of suicide attempts reported by client but does endorse a hx of suicidal thoughts.Noted that he has has been sober for five years after abusing alcohol from the ages of 19 to 33. Stated that he would get black out drunk a couple of times a week if not more often. Client is the oldest of two, younger brother who is a recoving addict and has served time [facility] due to drug related offenses. Relationship with mother is great per his report. Added that he had a really close relationship with father who last year of a heart attack. Noted that he was the one that father. 06/29/2023 Major depressive disorder, recurrent severe without psychotic features (ICD-10 - F33.2) 06/29/2023 Generalized anxiety disorder (ICD-10 - F41.1) 06/29/2023 Post-traumatic stress disorder, chronic (ICD-10 - F43.12) 06/11/2024 Recurrent major depressive episodes, moderate (ICD-10 - F33.1) 38 year old single never , but engaged, male seen today for initial assessment to start therapy. Client stated that he has seen Dr Ayala for medication therapy for the past two years. Hx of depression and anxiety reported by client which he believes have been present since early teens. Believes anxiety has been worse through out his life. One psych admission at the age of 22 due to hx of cutting self. No hx of suicide attempts reported by client but does endorse a hx of suicidal thoughts.Noted that he has has been sober for five years after abusing alcohol from the ages of 19 to 33. Stated that he would get black out drunk a couple of times a week if not more often. Client is the oldest of two, younger brother who is a recoving addict and has served time [facility] due to drug related offenses. Relationship with mother is great per his report. Added that he had a really close relationship with father who last year of a heart attack. Noted that he was the one that father. 11/03/2023 Generalized anxiety disorder (ICD-10 - F41.1) Generalized Anxiety Disorder: Care Instructions material was published Anxiety and Depression - Assessment: Patient reports improvement in communication with partner and overall mental health after attending therapy sessions. Patient has increased therapy frequency from monthly to bi-weekly. - Plan: - Continue current medications: Sertraline 20 mg once daily and Bupropion twice daily. - Encourage patient to maintain regular therapy sessions, currently scheduled every two weeks. Weight Gain - Assessment: Patient has been off Ozempic for 1-2 months due to automobile and property underwriter change and is experiencing weight gain. - Plan: - Advise patient to contact primary care provider to discuss possibility of resuming Ozempic 1 mg weekly. - Encourage patient to maintain a healthy diet and exercise regimen. Quetiapine ER Cost Concerns - Assessment: Patient reports high cost of quetiapine ER and wishes to switch back to regular quetiapine. - Plan: - Discontinue quetiapine ER and prescribe regular quetiapine at the same dosage. - Send prescription to patient's preferred pharmacy ([facility] in [facility] Partner's Mental Health - Assessment: Patient's partner is experiencing depression and has been off medication due to lack of insurance. Partner recently started a job at [employer] and will have insurance in 90 days. - Plan: - Encourage patient to inform partner to schedule an appointment with Dr. Ayala 90 days from now, and to discuss insurance status at that time. - Offer to write off the cost of the initial appointment only if partner does not have insurance by then. Follow-up - Plan: Schedule a follow-up appointment in three months to assess patient's progress and medication effectiveness. 08/03/2023 Primary insomnia (ICD-10 - F51.01) Anxiety and Depression - Assessment: The patient reports significant improvement in both anxiety and depression symptoms since the last visit. He attributes this improvement to the new medication regimen and coping strategies discussed in previous sessions. - Plan: - Continue current medications, including Trintellix 20mg daily, Buspar 5mg twice a day, and quetiapine 100mg per night. - Encourage the patient to continue utilizing coping strategies and monitor for any changes in symptoms. - Schedule a follow-up appointment in three months. Grief Related to Loss of Father - Assessment: The patient has made progress in coping with the loss of his father, including engaging in a balloon release ceremony and discussing his feelings with his girlfriend. He also attempted to involve his brother in the process, but respected his brother's decision to cope in his own way. - Plan: - Encourage the patient to continue seeking support from loved ones and engaging in healthy coping strategies. - Monitor for any signs of complicated grief or worsening mental health symptoms. Hypertension - Assessment: The patient is currently taking amlodipine and atorvastatin for hypertension management. - Plan: - Continue current medications for hypertension. - Encourage the patient to maintain a healthy lifestyle, including regular exercise, a balanced diet, and stress management. - Ensure the patient has a 90-day prescription for his medications. Follow-up - Plan: - Schedule a follow-up appointment in three months to assess the patient's progress and make any necessary adjustments to the treatment plan. 03/08/2024 Type 2 diabetes mellitus with hyperglycemia, with long-term current use of insulin (ICD-10 - E11.65) Insomnia - Assessment: Patient reports difficulty staying asleep, with only 1-3 hours of continuous sleep followed by tossing and turning. Total sleep duration is around 4-5 hours, but interrupted. Patient reports waking up once per night to use the bathroom. - Plan: - Increase quetiapine dosage from 100 mg to 150 mg, one tablet at bedtime. - Monitor sleep quality and duration. - Encourage patient to maintain good sleep hygiene. Depression - Assessment: Patient's score indicates moderate depression. 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 Patient reports feeling more enthusiastic about work lately. - Plan: - Continue Trintellix 20 mg daily. - Encourage patient to continue attending therapy sessions with Magen, which he reports are going well and helping him. - Schedule a follow-up appointment in 3 months or sooner if symptoms worsen. Anxiety - Plan: - Continue buspirone 5 mg twice daily. - Encourage patient to discuss anxiety concerns with Magen during therapy sessions. Hypertension - Assessment: Patient's blood pressure is elevated. He has had a long workday (12-hour shift) and is currently fatigued. Patient reports being up since midnight. - Plan: - Continue current antihypertensive medications (lisinopril 40 mg, carvedilol, amlodipine, hydrochlorothiazi de). - Monitor blood pressure and encourage lifestyle modifications. Diabetes - Assessment: Patient reports no issues with diabetes management. - Plan: - Continue current diabetes medications (Humalog insulin, metformin, Jardiance, Ozempic). - Monitor blood glucose levels and encourage adherence to a diabetic-friendly diet and exercise regimen. - Note: Patient's insurance has changed to [employer], which may affect medication coverage. Dyslipidemia - Plan: - Continue atorvastatin for cholesterol management. - Encourage a heart-healthy diet and regular exercise. Gastrointestinal Issues - Plan: - Continue current medications (metoclopramide, famotidine, colestipol, fenofibrate). - Monitor gastrointestinal symptoms and adjust medications as needed. Erectile Dysfunction - Plan: - Continue Viagra as needed. Musculoskeletal Issues - Plan: - Continue tizanidine as needed for muscle spasms. Other Medications - Plan: - Continue testosterone injections, omega-3 supplements, and Zofran as needed. - Monitor for any changes in insurance coverage and adjust medications accordingly. Follow-up - Plan: - Schedule a follow-up appointment in 3 months or sooner if any issues arise. - Encourage patient to maintain a list of current medications for future appointments to avoid confusion. 03/08/2024 Hyperlipidemia associated with type 2 diabetes mellitus (ICD-10 - E11.69) Insomnia - Assessment: Patient reports difficulty staying asleep, with only 1-3 hours of continuous sleep followed by tossing and turning. Total sleep duration is around 4-5 hours, but interrupted. Patient reports waking up once per night to use the bathroom. - Plan: - Increase quetiapine dosage from 100 mg to 150 mg, one tablet at bedtime. - Monitor sleep quality and duration. - Encourage patient to maintain good sleep hygiene. Depression - Assessment: Patient's score indicates moderate depression. 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 Patient reports feeling more enthusiastic about work lately. - Plan: - Continue Trintellix 20 mg daily. - Encourage patient to continue attending therapy sessions with Magen, which he reports are going well and helping him. - Schedule a follow-up appointment in 3 months or sooner if symptoms worsen. Anxiety - Plan: - Continue buspirone 5 mg twice daily. - Encourage patient to discuss anxiety concerns with Magen during therapy sessions. Hypertension - Assessment: Patient's blood pressure is elevated. He has had a long workday (12-hour shift) and is currently fatigued. Patient reports being up since midnight. - Plan: - Continue current antihypertensive medications (lisinopril 40 mg, carvedilol, amlodipine, hydrochlorothiazi de). - Monitor blood pressure and encourage lifestyle modifications. Diabetes - Assessment: Patient reports no issues with diabetes management. - Plan: - Continue current diabetes medications (Humalog insulin, metformin, Jardiance, Ozempic). - Monitor blood glucose levels and encourage adherence to a diabetic-friendly diet and exercise regimen. - Note: Patient's insurance has changed to [employer], which may affect medication coverage. Dyslipidemia - Plan: - Continue atorvastatin for cholesterol management. - Encourage a heart-healthy diet and regular exercise. Gastrointestinal Issues - Plan: - Continue current medications (metoclopramide, famotidine, colestipol, fenofibrate). - Monitor gastrointestinal symptoms and adjust medications as needed. Erectile Dysfunction - Plan: - Continue Viagra as needed. Musculoskeletal Issues - Plan: - Continue tizanidine as needed for muscle spasms. Other Medications - Plan: - Continue testosterone injections, omega-3 supplements, and Zofran as needed. - Monitor for any changes in insurance coverage and adjust medications accordingly. Follow-up - Plan: - Schedule a follow-up appointment in 3 months or sooner if any issues arise. - Encourage patient to maintain a list of current medications for future appointments to avoid confusion. 11/03/2023 Primary insomnia (ICD-10 - F51.01) Anxiety and Depression - Assessment: Patient reports improvement in communication with partner and overall mental health after attending therapy sessions. Patient has increased therapy frequency from monthly to bi-weekly. - Plan: - Continue current medications: Sertraline 20 mg once daily and Bupropion twice daily. - Encourage patient to maintain regular therapy sessions, currently scheduled every two weeks. Weight Gain - Assessment: Patient has been off Ozempic for 1-2 months due to automobile and property underwriter change and is experiencing weight gain. - Plan: - Advise patient to contact primary care provider to discuss possibility of resuming Ozempic 1 mg weekly. - Encourage patient to maintain a healthy diet and exercise regimen. Quetiapine ER Cost Concerns - Assessment: Patient reports high cost of quetiapine ER and wishes to switch back to regular quetiapine. - Plan: - Discontinue quetiapine ER and prescribe regular quetiapine at the same dosage. - Send prescription to patient's preferred pharmacy ([facility] in [facility] Partner's Mental Health - Assessment: Patient's partner is experiencing depression and has been off medication due to lack of insurance. Partner recently started a job at [employer] and will have insurance in 90 days. - Plan: - Encourage patient to inform partner to schedule an appointment with Dr. Ayala 90 days from now, and to discuss insurance status at that time. - Offer to write off the cost of the initial appointment only if partner does not have insurance by then. Follow-up - Plan: Schedule a follow-up appointment in three months to assess patient's progress and medication effectiveness. 03/08/2024 Essential hypertension (ICD-10 - I10) Insomnia - Assessment: Patient reports difficulty staying asleep, with only 1-3 hours of continuous sleep followed by tossing and turning. Total sleep duration is around 4-5 hours, but interrupted. Patient reports waking up once per night to use the bathroom. - Plan: - Increase quetiapine dosage from 100 mg to 150 mg, one tablet at bedtime. - Monitor sleep quality and duration. - Encourage patient to maintain good sleep hygiene. Depression - Assessment: Patient's score indicates moderate depression. 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 Patient reports feeling more enthusiastic about work lately. - Plan: - Continue Trintellix 20 mg daily. - Encourage patient to continue attending therapy sessions with M[facility], which he reports are going well and helping him. - Schedule a follow-up appointment in 3 months or sooner if symptoms worsen. Anxiety - Plan: - Continue buspirone 5 mg twice daily. - Encourage patient to discuss anxiety concerns with Magen during therapy sessions. Hypertension - Assessment: Patient's blood pressure is elevated. He has had a long workday (12-hour shift) and is currently fatigued. Patient reports being up since midnight. - Plan: - Continue current antihypertensive medications (lisinopril 40 mg, carvedilol, amlodipine, hydrochlorothiazi de). - Monitor blood pressure and encourage lifestyle modifications. Diabetes - Assessment: Patient reports no issues with diabetes management. - Plan: - Continue current diabetes medications (Humalog insulin, metformin, Jardiance, Ozempic). - Monitor blood glucose levels and encourage adherence to a diabetic-friendly diet and exercise regimen. - Note: Patient's insurance has changed to [employer], which may affect medication coverage. Dyslipidemia - Plan: - Continue atorvastatin for cholesterol management. - Encourage a heart-healthy diet and regular exercise. Gastrointestinal Issues - Plan: - Continue current medications (metoclopramide, famotidine, colestipol, fenofibrate). - Monitor gastrointestinal symptoms and adjust medications as needed. Erectile Dysfunction - Plan: - Continue Viagra as needed. Musculoskeletal Issues - Plan: - Continue tizanidine as needed for muscle spasms. Other Medications - Plan: - Continue testosterone injections, omega-3 supplements, and Zofran as needed. - Monitor for any changes in insurance coverage and adjust medications accordingly. Follow-up - Plan: - Schedule a follow-up appointment in 3 months or sooner if any issues arise. - Encourage patient to maintain a list of current medications for future appointments to avoid confusion. 03/08/2024 Generalized anxiety disorder (ICD-10 - F41.1) Generalized Anxiety Disorder: Care Instructions material was published Insomnia - Assessment: Patient reports difficulty staying asleep, with only 1-3 hours of continuous sleep followed by tossing and turning. Total sleep duration is around 4-5 hours, but interrupted. Patient reports waking up once per night to use the bathroom. - Plan: - Increase quetiapine dosage from 100 mg to 150 mg, one tablet at bedtime. - Monitor sleep quality and duration. - Encourage patient to maintain good sleep hygiene. Depression - Assessment: Patient's score indicates moderate depression. 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 Patient reports feeling more enthusiastic about work lately. - Plan: - Continue Trintellix 20 mg daily. - Encourage patient to continue attending therapy sessions with Magen, which he reports are going well and helping him. - Schedule a follow-up appointment in 3 months or sooner if symptoms worsen. Anxiety - Plan: - Continue buspirone 5 mg twice daily. - Encourage patient to discuss anxiety concerns with Magen during therapy sessions. Hypertension - Assessment: Patient's blood pressure is elevated. He has had a long workday (12-hour shift) and is currently fatigued. Patient reports being up since midnight. - Plan: - Continue current antihypertensive medications (lisinopril 40 mg, carvedilol, amlodipine, hydrochlorothiazi de). - Monitor blood pressure and encourage lifestyle modifications. Diabetes - Assessment: Patient reports no issues with diabetes management. - Plan: - Continue current diabetes medications (Humalog insulin, metformin, Jardiance, Ozempic). - Monitor blood glucose levels and encourage adherence to a diabetic-friendly diet and exercise regimen. - Note: Patient's insurance has changed to [employer], which may affect medication coverage. Dyslipidemia - Plan: - Continue atorvastatin for cholesterol management. - Encourage a heart-healthy diet and regular exercise. Gastrointestinal Issues - Plan: - Continue current medications (metoclopramide, famotidine, colestipol, fenofibrate). - Monitor gastrointestinal symptoms and adjust medications as needed. Erectile Dysfunction - Plan: - Continue Viagra as needed. Musculoskeletal Issues - Plan: - Continue tizanidine as needed for muscle spasms. Other Medications - Plan: - Continue testosterone injections, omega-3 supplements, and Zofran as needed. - Monitor for any changes in insurance coverage and adjust medications accordingly. Follow-up - Plan: - Schedule a follow-up appointment in 3 months or sooner if any issues arise. - Encourage patient to maintain a list of current medications for future appointments to avoid confusion. 03/08/2024 Primary insomnia (ICD-10 - F51.01) Insomnia - Assessment: Patient reports difficulty staying asleep, with only 1-3 hours of continuous sleep followed by tossing and turning. Total sleep duration is around 4-5 hours, but interrupted. Patient reports waking up once per night to use the bathroom. - Plan: - Increase quetiapine dosage from 100 mg to 150 mg, one tablet at bedtime. - Monitor sleep quality and duration. - Encourage patient to maintain good sleep hygiene. Depression - Assessment: Patient's score indicates moderate depression. 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 Patient reports feeling more enthusiastic about work lately. - Plan: - Continue Trintellix 20 mg daily. - Encourage patient to continue attending therapy sessions with Magen, which he reports are going well and helping him. - Schedule a follow-up appointment in 3 months or sooner if symptoms worsen. Anxiety - Plan: - Continue buspirone 5 mg twice daily. - Encourage patient to discuss anxiety concerns with Magen during therapy sessions. Hypertension - Assessment: Patient's blood pressure is elevated. He has had a long workday (12-hour shift) and is currently fatigued. Patient reports being up since midnight. - Plan: - Continue current antihypertensive medications (lisinopril 40 mg, carvedilol, amlodipine, hydrochlorothiazi de). - Monitor blood pressure and encourage lifestyle modifications. Diabetes - Assessment: Patient reports no issues with diabetes management. - Plan: - Continue current diabetes medications (Humalog insulin, metformin, Jardiance, Ozempic). - Monitor blood glucose levels and encourage adherence to a diabetic-friendly diet and exercise regimen. - Note: Patient's insurance has changed to [employer], which may affect medication coverage. Dyslipidemia - Plan: - Continue atorvastatin for cholesterol management. - Encourage a heart-healthy diet and regular exercise. Gastrointestinal Issues - Plan: - Continue current medications (metoclopramide, famotidine, colestipol, fenofibrate). - Monitor gastrointestinal symptoms and adjust medications as needed. Erectile Dysfunction - Plan: - Continue Viagra as needed. Musculoskeletal Issues - Plan: - Continue tizanidine as needed for muscle spasms. Other Medications - Plan: - Continue testosterone injections, omega-3 supplements, and Zofran as needed. - Monitor for any changes in insurance coverage and adjust medications accordingly. Follow-up - Plan: - Schedule a follow-up appointment in 3 months or sooner if any issues arise. - Encourage patient to maintain a list of current medications for future appointments to avoid confusion. 10/18/2023 Other Client participated in individual psychotherapy related to his hx of anxiety and depression. Based on today's session continued psychotherapy is recommended with no changes to treatment plan. Client presented to session well groomed and fully oriented with no risk of harm to self or others. Client verbal and engaged through out session. Reported upon presentation that he has been better . Seen today for the first time since completion of initial assessment on 09.14.2023. Client requested to speak about anxiety related to problems he has been having in the bedroom. Noted that he has been experiencing ED problems which has created issues with his masculinity and self esteem. Session accordingly challenged client's beliefs regarding what is to be a man. Client fearful that will leave him due to his problems. Admitted that he needs to be more trusting of when she tells that she understands and is being supportive. Client receptive to session feedback. Next session in four weeks. 38 year old single never , but engaged, male seen today for initial assessment to start therapy. Client stated that he has seen Dr Ayala for medication therapy for the past two years. Hx of depression and anxiety reported by client which he believes have been present since early teens. Believes anxiety has been worse through out his life. One psych admission at the age of 22 due to hx of cutting self. No hx of suicide attempts reported by client but does endorse a hx of suicidal thoughts.Noted that he has has been sober for five years after abusing alcohol from the ages of 19 to 33. Stated that he would get black out drunk a couple of times a week if not more often. Client is the oldest of two, younger brother who is a recoving addict and has served time [facility] due to drug related offenses. Relationship with mother is great per his report. Added that he had a really close relationship with father who last year of a heart attack. Noted that he was the one that father. 11/14/2023 Other Client participated in indiividual psychotherapy (CBT/Supportive ) related to his hx of anxiety and depression. Based on today's session continued psychotherapy is recommended with no changes to treatment plan. Client presented to session well groomed and fully oriented with no risk of harm to self or others. Client verbal and engaged through out session with appropriate mood and affect. Reported upon presentation that he has been not too bad since last seen on 10.18.2023. Noted that he has been more honest with ramo about who he is. Believes their communication has improved as well. Added that he has been more patient with regard to their sex life. Client mentioned that ramo has expressed concern over his lack of openly expressing emotions. Session accordingly explored and challenged client's beliefs about what it is to be a man. Client receptive to session feedback. Next session in two weeks. 38 year old single never , but engaged, male seen today for initial assessment to start therapy. Client stated that he has seen Dr Ayala for medication therapy for the past two years. Hx of depression and anxiety reported by client which he believes have been present since early teens. Believes anxiety has been worse through out his life. One psych admission at the age of 22 due to hx of cutting self. No hx of suicide attempts reported by client but does endorse a hx of suicidal thoughts.Noted that he has has been sober for five years after abusing alcohol from the ages of 19 to 33. Stated that he would get black out drunk a couple of times a week if not more often. Client is the oldest of two, younger brother who is a recoving addict and has served time [facility] due to drug related offenses. Relationship with mother is great per his report. Added that he had a really close relationship with father who last year of a heart attack. Noted that he was the one that father. 12/12/2023 Other Client participated in individual psychotherapy(C BT/Supportive) related to his hx of depression and anxiety. Based on today's session continued psychotherapy is recommended with no changes to treatment plan. Client presented to session well groomed and fully oriented with no risk of harm to self or others. Client verbal and engaged through out session. Reported upon presentation that he has been better and have been really mentally exhausted . Spoke at length about a recent argument with ramo which resulted in him calling off their wedding but later changed his mind. Client spoke about his worry and concern over ramo own mental health issues and not being in treatment. Client admitted that he needs to a better job of communicating and not avoiding conflict. Session accordingly helped client explore reason for his fear of conflict and struggles with communiation. Client receptive to session feedback. Next session in four weeks. 38 year old single never , but engaged, male seen today for initial assessment to start therapy. Client stated that he has seen Dr Ayala for medication therapy for the past two years. Hx of depression and anxiety reported by client which he believes have been present since early teens. Believes anxiety has been worse through out his life. One psych admission at the age of 22 due to hx of cutting self. No hx of suicide attempts reported by client but does endorse a hx of suicidal thoughts.Noted that he has has been sober for five years after abusing alcohol from the ages of 19 to 33. Stated that he would get black out drunk a couple of times a week if not more often. Client is the oldest of two, younger brother who is a recoving addict and has served time [facility] due to drug related offenses. Relationship with mother is great per his report. Added that he had a really close relationship with father who last year of a heart attack. Noted that he was the one that father. 01/02/2024 Other Client participated in individual psychotherapy*C BT/Supportive) related to his hx of anxiety and depression. Based on today's session continued psychotherapy is recommended with no changes to treatment plan. Client presented to session well groomed and fully oriented with no risk of harm to self or others. Client verbal and engaged through out session. Reported upon presentation that he has been hanging in there since last seen on 12.12.2023. Added that relationship with ramo is going much better as they are communicating much better and being more patient with each other. Client requested to talk about work related stress. Stated he has decided to look for other employment but is unsure of what kind of employment. Client provided with resources(caree r/personality inventories) and ways of handling work related stress. Client receptive to session feedback. Next session in two weeks. 38 year old single never , but engaged, male seen today for initial assessment to start therapy. Client stated that he has seen Dr Ayala for medication therapy for the past two years. Hx of depression and anxiety reported by client which he believes have been present since early teens. Believes anxiety has been worse through out his life. One psych admission at the age of 22 due to hx of cutting self. No hx of suicide attempts reported by client but does endorse a hx of suicidal thoughts.Noted that he has has been sober for five years after abusing alcohol from the ages of 19 to 33. Stated that he would get black out drunk a couple of times a week if not more often. Client is the oldest of two, younger brother who is a recoving addict and has served time [facility] due to drug related offenses. Relationship with mother is great per his report. Added that he had a really close relationship with father who last year of a heart attack. Noted that he was the one that father. 02/08/2024 Other Client participated individual psychotherapy(C BT/Supportive) related to his hx of anxiety and depression. Based on today's session continued psychotherapy is recommended with no changes to treatment plan. Client presented to session well groomed and fully oriented with no risk of harm to self or others. Client verbal and engaged through out session. Reported upon presentation that he has not too bad, but tired from work, since last seen on 01.02.2024. Added that he is still looking for another job but has not been as serious as he needs to be in job search. Noted that he has not been happy in a long time at current job. Stated that a few weeks ago he walked out before his shift was over and did not come back the following day as well. Relationship with ramo continues to go well with no recent arguments and they continue to work on their communication. Client however bothered by nature of their of sex life but over all believes he is doing much better. Client provided supportive therapy. Next session in four weeks. 38 year old single never , but engaged, male seen today for initial assessment to start therapy. Client stated that he has seen Dr Ayala for medication therapy for the past two years. Hx of depression and anxiety reported by client which he believes have been present since early teens. Believes anxiety has been worse through out his life. One psych admission at the age of 22 due to hx of cutting self. No hx of suicide attempts reported by client but does endorse a hx of suicidal thoughts.Noted that he has has been sober for five years after abusing alcohol from the ages of 19 to 33. Stated that he would get black out drunk a couple of times a week if not more often. Client is the oldest of two, younger brother who is a recoving addict and has served time [facility] due to drug related offenses. Relationship with mother is great per his report. Added that he had a really close relationship with father who last year of a heart attack. Noted that he was the one that father. 03/12/2024 Other Client participated in individual psychotherapy(C BT/Supportive) related to his hx of anxiety and depression. Based on today's session continued psychotherapy is recommended with no changes to treatment plan. Client presented to session well groomed and fully oriented with no risk of harm to self or others. Client verbal and engaged through out session. Reported upon presentation that he has not been well due to familly stuff which he has been avoiding for some time now. Noted that this has caused anxiety and depression to be increased but mainly anxiety. Relationship with mother and younger brother at the core of his increased anxiety and depression symptoms. Stated that he has allowed brother to take advantage of him numerous times. Admitted that he has been the one that has worked the hardest to maintain relationship wih mother and brother through his life. Further conceded that he has protected mother from his feelings for as long a he can recall and in the process he has not made self a priority in his own life. Client provided supportive therapy as well as helping him identify beliefs which have allowed him to be where he is at in life and nature of relationship with mother and brother. Client receptive to session feedback. Next session in four weeks. 38 year old single never , but engaged, male seen today for initial assessment to start therapy. Client stated that he has seen Dr Ayala for medication therapy for the past two years. Hx of depression and anxiety reported by client which he believes have been present since early teens. Believes anxiety has been worse through out his life. One psych admission at the age of 22 due to hx of cutting self. No hx of suicide attempts reported by client but does endorse a hx of suicidal thoughts.Noted that he has has been sober for five years after abusing alcohol from the ages of 19 to 33. Stated that he would get black out drunk a couple of times a week if not more often. Client is the oldest of two, younger brother who is a recoving addict and has served time [facility] due to drug related offenses. Relationship with mother is great per his report. Added that he had a really close relationship with father who last year of a heart attack. Noted that he was the one that father. 06/11/2024 Other Clinical Notes : Client participated in individual psychotherapy(C BT/Supportive) related to his hx of anxiety and depression. Based on today's session continued psychotherapy is recommended with no changes to treatment plan. Client presented to session well groomed and fully oriented with no risk of harm to self or others. Client verbal and engaged through out session. Reported upon presentation that he has been mentally spent since last seen on 03.12.2024. Noted that work has been really stressful and overwhelming as made anxiety and depression worse. Admitted that he has taught employer how to treat him due to his lack of boundaries setting and fear of letting others down. Moreover conceded that he has never made self a priority in his own life. Session accordingly assisted client in exploring irrational thoughts and beliefs which have supported and fueled anxiety and depression. One such belief that asking for help is a sign of weakness. Client provided with a hand out on The Process of De-selfing. Client admitted that he has been guilty of de-selfing through out his life. Clien receptive to session feedback. Next session in four weeks. 38 year old single never , but engaged, male seen today for initial assessment to start therapy. Client stated that he has seen Dr Ayala for medication therapy for the past two years. Hx of depression and anxiety reported by client which he believes have been present since early teens. Believes anxiety has been worse through out his life. One psych admission at the age of 22 due to hx of cutting self. No hx of suicide attempts reported by client but does endorse a hx of suicidal thoughts.Noted that he has has been sober for five years after abusing alcohol from the ages of 19 to 33. Stated that he would get black out drunk a couple of times a week if not more often. Client is the oldest of two, younger brother who is a recoving addict and has served time [facility] due to drug related offenses. Relationship with mother is great per his report. Added that he had a really close relationship with father who last year of a heart attack. Noted that he was the one that father. Plan Of Treatment Next Appt Details Provider Name:Luke Navarro Lucy , 07/02/2024 03:30:00 PM, [address], [place], [address], Provider Name:Magen naqvi, 07/04/2024 04:00:00 PM, [address], [place], [address], Insurance Providers Payer Name Payer Address Payer Phone Subscriber Number Group Number Insured Name Patient Relationship to Insured Coverage Start Date Coverage End Date [facility] [address] [place] [phone] [id number] AALIYAH CROOKS Self - patient is the insured Medical (General) History Medical History History ICD Code Problems: Chronic post-traumatic stress disorder Diabetes mellitus Essential hypertension Generalized anxiety disorder Hypercholesterolemia Hyperlipidemia Primary insomnia Severe recurrent major depression withou t psychotic features Type 1 diabetes mellitus , Surgical History Surgery Date(Month/Year) Other 07/22/2022 Reconstructive surgery 07/22/2022
--- NOTE | 2024-06-17 17:47 | ECG_ITS ---
Test Date: 2024-06-17 17:53:10 Measurements Intervals [place] Rate: 75 P: 33 AR: 183 QRS: 27 QRSD: 134 T: 23 QT: 393 QTc: 439 Interpretive Statements SINUS RHYTHM RIGHT BUNDLE BRANCH BLOCK CONSIDER INFERIOR INFARCT, AGE INDETERMINATE BASELINE WANDER- V4-V6 ABNORMAL ECG No previous ECG available for comparison Electronically Signed On 06-17-2024 19:41:27 CDT by Darryl Gutierrez D.O.
[2024-06-17 18:09] LABS: Basophils Percent Auto 0.6 % (0.2-1.2); Eosinophils Absolute Auto 0.2 K/mm3 (0-0.3); Eosinophils Percent Auto 2.4 % (0-4.4); Hematocrit 40.7 % (42.0-52.0); Hemoglobin 13.4 g/dL (14.0-18.0); Immature Granulocyte Absolute 0.05 K/mm3 (0.00-0.031); Immature Granulocyte Percent A 0.7 % (0-0.5); Lymphocytes Absolute Auto 1.97 K/mm3 (0.9-3.2); Lymphocytes Percent Auto 28.4 % (18.3-44.2); Mean Corpuscular HGB Conc 32.9 g/dl (32-36); Mean Corpuscular Hemoglobin 27.6 pg (26-34); Mean Corpuscular Volume 83.9 fl (80-100); Mean Platelet Volume 11.2 fl (7.4-10.4); Monocytes Absolute Auto 0.5 K/mm3 (0.1-0.6); Monocytes Percent Auto 7.2 % (2.6-8.5); Neutrophils Absolute Auto 4.2 K/mm3 (1.3-6.7); Neutrophils Percent Auto 60.7 % (45.5-73.1); Platelet Count Result 196 k/mm3 (150-375); Red Blood Count 4.85 M/mm3 (4.6-6.20); Red Cell Distribution Width 13.8 % (11.5-14.5); White Blood Count 6.9 K/mm3 (4.5-10.0)
[2024-06-17 18:21] LABS: Alanine Aminotransferase 37 U/L (6-50); Albumin Level 4.2 g/dL (3.5-5.1); Alkaline Phosphatase 68 U/L (38-126); Anion Gap 12 mmol/L (4-12); Aspartate Amino Transferase 28 U/L (17-59); Bilirubin,Total 0.4 mg/dL (0.2-1.3); Blood Urea Nitrogen 17 mg/dL (9-20); Calcium 8.8 mg/dL (8.4-10.2); Carbon Dioxide 23 mmol/L (22-30); Chloride 102 mmol/L (98-107); Estimated CRCL calculation 105 ml/min; Estimated Glomerular Filt Rate > 60; Glucose 266 mg/dL (65-110); INR 0.9; Lipase 419 U/L (23-300); Partial Thromboplastin Time 27.5 Seconds (22.3-36.8); Potassium 3.9 mmol/L (3.4-5.0); Prothrombin Time 12.8 Seconds (11.1-14.7); Sodium 137 mmol/L (137-145)
[2024-06-17 18:33] LABS: Troponin I < 0.012 ng/mL (0.000-0.034)
--- OUTSIDE RECORDS SUMMARY | 2024-06-17 19:05 | XMS_ITS | Referral Summary ---
Author Organization [facility] Address [facility] [place] [address] Care Team Providers Care Life Guard Name Role Phone Santhosh Franco DO Primary Care Provider [phone] Allergies No known active allergies Medications gabapentin [...] by mouth nightly 06/15/19 23 Active omega 6-ear-vgj-fish oil 1,000 mg (120 mg-180 mg) capsuleIndications:h [...] 02/25/2022 Assessment & Plan (02/25/2022 4:05 PM LOGISTICS VICE PRESIDENT): Chronic problem. On statin therapy, no changes. Hypertension associated with type 2 diabetes mary litus 02/25/2022 Assessment & Plan (02/25/2022 4:05 PM LOGISTICS VICE PRESIDENT): Controlled on current medications, no changes. Insulin pump status 02/25/2022 Assessment & Plan (02/25/2022 3:17 PM LOGISTICS VICE PRESIDENT): Change pump settings to: Workday: BR 2.0 [...] 12/22/2021 Assessment & Plan (02/25/2022 4:06 PM LOGISTICS VICE PRESIDENT): Chronic problem, significantly improving. Increase Mounjaro to [...] on file Legal Sex Male 5:27 AM LOGISTICS VICE PRESIDENT Gender Identity Not on file Sexual Orientation [...] HEMOGLOBIN A1C Routine 02/25/2022 2 :43 PM LOGISTICS VICE PRESIDENT Type 2 diabetes mellitus with hyperglycemia, with long-term current use of insulin (HCC) SERUM LIPID PANEL Routine 01/20/2014 9:3 9 PM LOGISTICS VICE PRESIDENT from Last 3 Months or Most Recently Relevant to Health Maintenance Results * POCT hemoglobin A1c (02/25/2022 2:43 PM LOGISTICS VICE PRESIDENT) Hemoglobin A1C, POC 6.7 Blood 02/25/2022 2:43 PM LOGISTICS VICE PRESIDENT Leticia WINSTON POINT OF CARE TEST EMA HANSON Final Result * (ABNORMAL) Serum lipid panel (01/20/2014 9:39 PM LOGISTICS VICE PRESIDENT) Cholesterol 1080(H) 0 - 200 mg/dl HISTORICAL [...] revised on 2007. Serum 01/20/2014 9:39 PM LOGISTICS VICE PRESIDENT us Kamla Otero MD LAB BLOOD ORDERABLES Final Resul t HISTORICAL RESULTS from Last 3 Months or Most Recently Relevant to Health Maintenance Insurance [employer] [facility] PPO [facility] PPO Care Teams Life Guard Relationship Specialty Start Date End Date Santhosh Franco DO PCP - General Internal Medicine 08/07/21
--- OUTSIDE RECORDS SUMMARY | 2024-06-17 19:05 | XMS_ITS | Clinical Summary ---
Author Organization [facility] Address [address] [place] [id number] Phone Care Team Providers Care Mannequin Decorator Name Role Phone Santhosh Franco DO Primary Care Provider [phone] Allergies No known active allergies Medications amLODIPine [...] Comments Influenza Vaccine (Season Ended) 2024 Insurance [facility] Care Teams Mannequin Decorator Relationship Specialty Start Date End Date Santhosh Franco DO [address] [place] [id number] PCP - General Internal Medicine 08/04/21
--- OUTSIDE RECORDS SUMMARY | 2024-06-17 19:05 | XMS_ITS | Continuity of Care Document ---
Author Organization [facility] Address [id number] [place] [address] [address] [place] [address] Phone Care Team Providers Care Box Shook Patcher Name Role Phone Kee OD, Nikolas Unavailable Unavailable Advance Directives Directive Yes / No Effective Date File Name No Information Encounters Encounter Description Practice Location Reason(s) For Visit Diagnoses Date Provider Providers Copied on Encounter [facility], [address], [place], [place], [id number], [place] tel:[phone] [facility] No Information May-0 4-200 6 Kee OD Nikolas. [address] [facility] , [address], [place], [address], [place]. tel:[phone] Family History Family Member Type Diagnosis Age [...]
--- OUTSIDE RECORDS SUMMARY | 2024-06-17 19:05 | XMS_ITS | Clinical Summary ---
Author Organization [facility] Address [address] [place] [address] Care Team Providers Care Engraver Optical Frames Name Role Phone Santhosh Franco DO Primary Care Provider [phone] Allergies No known active allergies Medications gabapentin [...] by mouth nightly 06/15/19 23 Active omega 9-wlp-qpv-fish oil 1,000 mg (120 mg-180 mg) capsuleIndications:h [...] 02/25/2022 Assessment & Plan (02/25/2022 4:05 PM DISTRIBUTION DRIVER): Chronic problem. On statin therapy, no changes. Hypertension associated with type 2 diabetes mary litus 02/25/2022 Assessment & Plan (02/25/2022 4:05 PM DISTRIBUTION DRIVER): Controlled on current medications, no changes. Insulin pump status 02/25/2022 Assessment & Plan (02/25/2022 3:17 PM DISTRIBUTION DRIVER): Change pump settings to: Workday: BR 2.0 [...] 12/22/2021 Assessment & Plan (02/25/2022 4:06 PM DISTRIBUTION DRIVER): Chronic problem, significantly improving. Increase Mounjaro to [...] on file Legal Sex Male 5:27 AM DISTRIBUTION DRIVER Gender Identity Not on file Sexual Orientation [...] HEMOGLOBIN A1C Routine 02/25/2022 2 :43 PM DISTRIBUTION DRIVER Type 2 diabetes mellitus with hyperglycemia, with long-term current use of insulin (HCC) SERUM LIPID PANEL Routine 01/20/2014 9:3 9 PM DISTRIBUTION DRIVER from Last 3 Months or Most Recently Relevant to Health Maintenance Results * POCT hemoglobin A1c (02/25/2022 2:43 PM DISTRIBUTION DRIVER) Hemoglobin A1C, POC 6.7 Blood 02/25/2022 2:43 PM DISTRIBUTION DRIVER Leticia WINSTON POINT OF CARE TEST EMA HANSON Final Result * (ABNORMAL) Serum lipid panel (01/20/2014 9:39 PM DISTRIBUTION DRIVER) Cholesterol 1080(H) 0 - 200 mg/dl HISTORICAL [...] revised on 2007. Serum 01/20/2014 9:39 PM DISTRIBUTION DRIVER Kamla Otero MD LAB BLOOD ORDERABLES Final Resul t HISTORICAL RESULTS from Last 3 Months or Most Recently Relevant to Health Maintenance Insurance [facility] PPO [facility] AETNA [facility] CMR PPO Care Teams Engraver Optical Frames Relationship Specialty Start Date End Date Santhosh Franco DO PCP - General Internal Medicine 08/07/21
--- NOTE | 2024-06-17 19:41 | ED.GENADULT ---
HPI - General Adult General Chief complaint: Chest Pain Stated complaint: chest discomfort for weeks Time Seen by Provider: 06/17/24 18:41 History of Present Illness HPI narrative: 38-year-old male with history of hypertension, high cholesterol and diabetes presents emergency department for exertional chest tightness. She denies any prior history of coronary artery disease but states he has had approximate 10 lb of weight gain over last 10 months. Patient's blood pressure is typically not checked at home but is running in the 140 systolic range here. Patient does have an insulin pump that he wears but the pump has been malfunctioning as of recently and he has been doing insulin injections. Patient states his blood sugars at home have been running 100 to 200s, patient denies any 400-500 blood sugars. Patient states that he did have some exertional chest tightness and shortness of breath with ambulation a few days ago a patient wanted to be evaluated. Patient also describes a left-sided shoulder injury that occurred while he was at the gym but states he still has some weakness of the left shoulder. Patient states this does not correlate with the exertional shortness of breath. Related Data Home Medications ?Medication ?Instructions ?Recorded ?Confirmed ?Last Taken ?Type semaglutide 0.25 mg or 0.5 mg (2 1 mg subcut WEEKLY 07/29/22 10/07/23 Unknown History mg/3 mL) subcutaneous pen injector (Ozempic) vortioxetine 20 mg tablet 20 mg PO DAILY 04/14/23 10/07/23 07/31/23 History (Trintellix) buspirone 5 mg tablet 5 mg PO BID 08/17/23 10/07/23 Unknown History amlodipine 5 mg tablet 5 mg PO DAILY 10/05/23 10/05/23 Unknown History Allergies Allergy/AdvReac Type Severity Reaction Status Date / Time cat dander Allergy Unknown Verified 10/05/23 15:35 Review of Systems Review of Systems: All systems reviewed & are unremarkable except as noted in HPI and below PMFSH Past Medical History Medical History Asthma Depression Encounter for monitoring testosterone replacement therapy Essential hypertension Hypercholesterolemia with hypertriglyceridemia Hypogonadism Insomnia Irregular heart beat Male hypogonadism Skin lesion of left external ear Type 2 diabetes mellitus without complication, with long-term current use of insulin Surgical History Surgical History H/O rhinoplasty Hx of tympanostomy tubes Family History Family History Father Hypertension Mother Hypertension Skin cancer Social History Social History (Updated 10/05/23 @ 15:38 by Geovanna Henderson MA) 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 Smoking status: Never smoker Alcohol intake: never Alcohol use details: socially Substance use: current Substance use type: marijuana Other substance usage details: edibles occas Do You Feel Safe in your Home?: Yes Lack of Transportation: No Lack of Food: Never True Current Housing: I Have Housing Concerned About Future Housing: No Difficulty Paying Gas/Electric Bills: No Difficulty Paying for Meds: No Currently Unemployed: No Education: High School Diploma/GED Difficulty w/ Childcare or Family Care: No Living arrangements: alone Gender identity (if verbalized by the patient): Male Spiritual care concerns: No Exam Narrative: APPEARANCE: Well appearing, no pain, no distress, well-nourished. HEAD: normocephalic, atraumatic. EYES: PERRLA/EOMI, conjunctivae clear. NOSE: Normal no drainage EARS:TMS clear with good light reflex. THROAT: Pharynx clear, no exudate. NECK: Supple. No adenopathy, no masses. RESPIRATORY: Airway patent, respirations nonlabored. Clear to auscultation bilaterally, no rales, rhonchi, wheezing. CARDIOVASCULAR: Regular rate and rhythm without murmurs rubs or gallops. ABDOMINAL: Soft, nontender, nondistended, normal bowel sounds MUSCULOSKELETAL: Moves all extremities. Strength/ROM intact, No edema, No calf tenderness. NEURO: Alert. Cranial nerves II through XII intact. Good gait. Good coordination SKIN: Warm, dry. Normal Color Course Vital Signs Vital signs: Vital Signs Temperature 97.6 F 06/17/24 17:44 Pulse Rate 85 06/17/24 17:44 Respiratory Rate 18 06/17/24 17:44 Blood Pressure 147/88 H 06/17/24 17:44 Pulse Oximetry 100 06/17/24 17:44 Oxygen Delivery Room Air 06/17/24 17:44 Temperature 97.6 F 06/17/24 17:44 Pulse Rate 73 06/17/24 20:40 Respiratory Rate 18 06/17/24 20:40 Blood Pressure 146/93 H 06/17/24 20:40 Pulse Oximetry 99 06/17/24 20:40 Oxygen Delivery Room Air 06/17/24 18:43 Medical Decision Making [facility] Narrative Medical decision making narrative: 38-year-old male presents to the emergency department for evaluation for exertional chest tightness. Patient is currently afebrile with no leukocytosis and hemoglobin of 15.4. Patient's INR is 0.9. Patient has no acute abnormalities on his CMP other than a blood sugar of 266. His initial troponin was negative. Chest x-ray was negative. Differential Diagnosis Differential Diagnosis: Pneumonia, COVID, RSV, influenza, gastritis, ACS, muscular strain Vital Signs Vital Signs: Vital Signs Temperature 97.6 F 06/17/24 17:44 Pulse Rate 85 06/17/24 17:44 Respiratory Rate 18 06/17/24 17:44 Blood Pressure 147/88 H 06/17/24 17:44 Pulse Oximetry 100 06/17/24 17:44 Oxygen Delivery Room Air 06/17/24 17:44 Temperature 97.6 F 06/17/24 17:44 Pulse Rate 73 06/17/24 20:40 Respiratory Rate 18 06/17/24 20:40 Blood Pressure 146/93 H 06/17/24 20:40 Pulse Oximetry 99 06/17/24 20:40 Oxygen Delivery Room Air 06/17/24 18:43 Lab Data Lab results reviewed: Yes I reviewed the patient's lab results. 06/17/24 18:03 06/17/24 18:03 Labs: Lab Results 06/17/24 06/17/24 Range/Units 18:03 20:48 WBC 6.9 (4.5-10.0) K/mm3 RBC 4.85 (4.6-6.20) M/mm3 Hgb 13.4 L (14.0-18.0) g/dL Hct 40.7 L (42.0-52.0) % MCV 83.9 (80-100) fl MCH 27.6 (26-34) pg MCHC 32.9 (32-36) g/dl RDW 13.8 (11.5-14.5) % Plt Count 196 (150-375) k/mm3 MPV 11.2 H (7.4-10.4) fl Immature Gran % (Auto) 0.7 H (0-0.5) % Neut % (Auto) 60.7 (45.5-73.1) % Lymph % (Auto) 28.4 (18.3-44.2) % Rowan % (Auto) 7.2 (2.6-8.5) % Eos % (Auto) 2.4 (0-4.4) % Baso % (Auto) 0.6 (0.2-1.2) % Lymph # (Auto) 1.97 (0.9-3.2) K/mm3 Rowan # (Auto) 0.5 (0.1-0.6) K/mm3 Eos # (Auto) 0.2 (0-0.3) K/mm3 Baso # (Auto) 0.0 (0.0-0.1) K/mm3 Abs Immat Gran (auto) 0.05 H (0.00-0.031) K/mm3 Absolute Neuts (auto) 4.2 (1.3-6.7) K/mm3 Absolute Nucleated RBC 0.000 (0.0-0.012) K/mm3 Nucleated RBC % 0.0 (0.0-0.2) % PT 12.8 (11.1-14.7) Seconds INR 0.9 APTT 27.5 (22.3-36.8) Seconds Sodium 137 (137-145) mmol/L Potassium 3.9 (3.4-5.0) mmol/L Chloride 102 (98-107) mmol/L Carbon Dioxide 23 (22-30) mmol/L Anion Gap 12 (4-12) mmol/L BUN 17 D (9-20) mg/dL Creatinine 1.08 (0.7-1.3) mg/dL Estim Creat Clear Calc 105 ml/min Estimated GFR > 60 (59 - ) Glucose 266 H (65-110) mg/dL Calcium 8.8 (8.4-10.2) mg/dL Total Bilirubin 0.4 (0.2-1.3) mg/dL AST 28 (17-59) U/L ALT 37 (6-50) U/L Alkaline Phosphatase 68 (38-126) U/L Troponin I < 0.012 < 0.012 (0.000-0.034) ng/mL Total Protein 7.0 (6.3-8.2) g/dL Albumin 4.2 (3.5-5.1) g/dL Lipase 419 H (23-300) U/L Discharge Plan Discharge Clinical Impression: Chest pain Patient Disposition: Home Condition: Stable Instructions: Antibiotic Form, Chest Pain (ED) Additional Instructions: Have close follow-up with your primary care physician for additional outpatient cardiac testing including a stress test. You may also benefit from a sleep study. Patient Language: Somali Prescriptions: No Action gabapentin 300 mg capsule 300 mg PO TID Qty: 270 1RF (DME) needle (disp) 18 G 18 gauge x 1 needle See Rx Instructions .ROUTE .MEDSUPPLY Qty: 100 0RF Rx Instructions: Use to Draw up testosterone Q 2 Weeks (DME) Syringe 3cc/22Gx3/4 3 mL 22 gauge x 3/4 syringe See Rx Instructions .ROUTE .MEDSUPPLY Qty: 100 0RF Rx Instructions: Use to inject testosterone Q week amlodipine 5 mg tablet 5 mg PO DAILY buspirone 5 mg tablet 5 mg PO BID Trintellix 20 mg tablet 20 mg PO DAILY Ozempic 0.25 mg or 0.5 mg (2 mg/3 mL) Pen Injector 1 mg SUBCUT WEEKLY trazodone 100 mg tablet 100 mg PO QHS Qty: 90 3RF sildenafil 50 mg tablet 50 mg PO DAILY MDD 100mg PRN (Reason: sexual activity) Qty: 10 3RF Rx Instructions: administer 30 minutes to 4 hours before activity (DME) insulin syringe-needle U-100 [BD Insulin Syringe] 1 mL 28 gauge x 1/2 syringe See Rx Instructions .Route Qty: 100 0RF Rx Instructions: Use to inject Insulin fenofibrate nanocrystallized 145 mg tablet 145 mg PO DAILY Qty: 90 1RF Rx Instructions: Take 1 tablet by mouth once daily insulin aspart U-100 [Novolog U-100 Insulin aspart] 100 unit/mL solution 1 sliding scale dose subcut USEASDIRECTD Qty: 4 5RF Rx Instructions: Use to inject via insulin pump, MMD 180 (DME) FreeStyle Dior 14 Day Sensor Kit See Rx Instructions .ROUTE .MEDSUPPLY Qty: 3 0RF Rx Instructions: Use to check blood sugar with meter. omega 6-cff-qln-fish oil 1,000 mg (120 mg-180 mg) capsule 4 cap PO DAILY Qty: 120 0RF testosterone cypionate 200 mg/mL oil 180 mg IM WEEKLY Qty: 4 2RF metoclopramide HCl 5 mg tablet See Rx Instructions .ROUTE .COMPLEX Qty: 30 6RF Dose Instruction: TAKE 1 TABLET BY MOUTH EVERYDAY AT BEDTIME Rx Instructions: TAKE 1 TABLET BY MOUTH EVERYDAY AT BEDTIME colestipol 1 gram tablet See Rx Instructions .ROUTE .COMPLEX Qty: 180 1RF Dose Instruction: TAKE 1 TABLET BY MOUTH TWICE A DAY Rx Instructions: TAKE 1 TABLET BY MOUTH TWICE A DAY atorvastatin 80 mg tablet 80 mg PO DAILY Qty: 90 0RF Rx Instructions: NEEDS APPOINTMENT FOR FURTHER REFILLS Jardiance 10 mg tablet 10 mg PO DAILY Qty: 90 1RF carvedilol 25 mg tablet See Rx Instructions .ROUTE .COMPLEX Qty: 180 3RF Dose Instruction: TAKE ONE TABLET BY MOUTH EVERY 12 HOURS WITH A MEAL/FOOD Rx Instructions: TAKE ONE TABLET BY MOUTH EVERY 12 HOURS WITH A MEAL/FOOD tizanidine 6 mg capsule 6 mg PO BID PRN (Reason: muscle spasticity) Qty: 60 1RF hydrochlorothiazide 25 mg tablet 25 mg PO DAILY Qty: 90 1RF Rx Instructions: Take 1 tablet by mouth once daily. metformin 1,000 mg tablet 1,000 mg PO BID Qty: 180 1RF lisinopril 40 mg tablet 40 mg PO DAILY Qty: 90 1RF Follow-up/Referrals: Santhosh Franco DO [Primary Care Provider] - Quality HEART score for chest pain patients History: slightly suspicious ECG: normal Age: < or = to 45 years Risk factors: 1 or 2 risk factors Troponin: < or = to 1x normal limit Heart score: 1
--- NOTE | 2024-06-17 20:15 | ECG_ITS ---
Test Date: 2024-06-17 20:35:35 Measurements Intervals [place] Rate: 70 P: 22 MO: 188 QRS: 19 QRSD: 136 T: 4 QT: 398 QTc: 432 Interpretive Statements SINUS RHYTHM WITH OCCASIONAL VENTRICULAR PREMATURE COMPLEXES RIGHT BUNDLE BRANCH BLOCK BASELINE ARTIFACT- I, III, AVL, AVF, V4-V6 ABNORMAL ECG Compared to ECG 06/17/2024 17:53:10 NO SIGNIFICANT CHANGE Electronically Signed On 06-18-2024 06:29:18 CDT by Darryl Gutierrez D.O.
[2024-06-17 21:15] LABS: Troponin I < 0.012 ng/mL (0.000-0.034)
== END 2024-06-17 21:26 | disposition home or self-care (01) ==
PROVIDERS: Emergency Provider Emergency Medicine; PCP Internal Medicine
DX: R07.89 Other chest pain (principal); I10 Essential (primary) hypertension; E78.00 Pure hypercholesterolemia, unspecified; E11.9 Type 2 diabetes mellitus without complications; E78.1 Pure hyperglyceridemia; J45.909 Unspecified asthma, uncomplicated; F32.A Depression, unspecified; Z79.4 Long term (current) use of insulin; Z79.899 Other long term (current) drug therapy; Z79.85 Long-term (current) use of injectable non-insulin antidiabetic drugs; Z79.84 Long term (current) use of oral hypoglycemic drugs; I45.10 Unspecified right bundle-branch block; R94.31 Abnormal electrocardiogram [ECG] [EKG]
CPT/HCPCS: 36415; 71046; 80053; 83690; 84484; 85025; 85610; 85730; 93005; 99284

== ENCOUNTER 2024-07-19 15:01 | Outpatient (CLI) | payer OTHER, SELFPAY ==
--- NOTE | ~2024-07-19 | XR_ITS ---
HISTORY: M25.512 - Pain in left shoulder COMPARISON: None TECHNIQUE: 3 views of the left shoulder were performed FINDINGS: No acute fracture. The glenohumeral and acromioclavicular joint space is maintained The visualized portion of the adjacent left lung is clear. The humeral head is well seated within the glenoid fossa. IMPRESSION: No acute fracture or anterior dislocation. Reviewed, dictated and finalized at location A.
== END 2024-07-19 15:02 | disposition home or self-care (01) ==
LOC: GOSHIMG 15:02
PROVIDERS: PCP Clinical Nurse Specialist; Visit Provider Clinical Nurse Specialist
DX: M25.512 Pain in left shoulder (principal); G89.29 Other chronic pain
CPT/HCPCS: 73030

== ENCOUNTER → 2024-08-14 15:26 | Outpatient (REF) | payer OTHER, SELFPAY ==
--- NOTE | 2024-08-14 15:26 | S_PTH ---
PATIENT: Harvey Camara LOC: [facility] U#:[id number] AGE/SX: 39/M ROOM: RE08/14/[address]: Simon Lyles MD : 1985 BED: DIS: SPEC #: [id number] RECD: 08/15/24 06:24 STATUS: FARRUKH REPaul #: [id number] CHILANGO: 08/14/24 15:[address]: Simon Lyles DEPT: [facility] Surgical RECD BY: Trish Bah ENTERED: 08/15/24 06:24 SP TYPE: Surgical OTHR DR: Marita Aviles, RACHEL Tissues: A - Skin Procedures: Hematoxylin and Eosin Stain Gross and Microscopic Level 4
--- OUTSIDE RECORDS SUMMARY | 2024-08-14 16:21 | XMS_ITS | Clinical Summary ---
Author Organization [facility] Address [address] [place] [address] Phone Care Team Providers Care Hr Receptionist Name Role Phone Santhosh Franco DO Primary Care Provider [phone] Allergies No known active allergies Medications amLODIPine [...] 1:24 PM CDT Height 170.2 cm (5' 7) 11/04/2021 1:24 PM CDT Body Mass Index 43.07 11/04/2021 1:24 PM CDT Plan of Treatment Health Maintenance Due Date Last Done Comments Influenza Vaccine (Season Ended) 2024 Insurance [facility] Care Teams Hr Receptionist Relationship Specialty Start Date End Date Santhosh Franco DO [address] [place] [id number] PCP - General Internal Medicine 08/04/21
--- OUTSIDE RECORDS SUMMARY | 2024-08-14 16:21 | XMS_ITS | Continuity of Care Document ---
Author Organization [facility] Address [address] [place] [address] [address] [place] [address] Phone Care Team Providers Care Director Of Cardiac Rehabilitation Name Role Phone Kee OD, Nikolas Unavailable Unavailable Advance Directives Directive Yes / No Effective Date File Name No Information Encounters Encounter Description Practice Location Reason(s) For Visit Diagnoses Date Provider Providers Copied on Encounter [facility], [address], [place], [place], [id number], [place] tel:[phone] [facility] No Information May-0 4-200 6 Kee OD Nikolas. [address] [facility] , [address], [place], [address], [place]. tel:[phone] Family History Family Member Type Diagnosis Age [...]
--- OUTSIDE RECORDS SUMMARY | 2024-08-14 16:21 | XMS_ITS | Referral Summary ---
Author Organization [facility] Address [facility] [place] [address] Care Team Providers Care Spinner Hydraulic Name Role Phone Santhosh Franco DO Primary Care Provider [phone] Allergies No known active allergies Medications gabapentin [...] by mouth nightly 06/15/19 23 Active omega 3-qcw-fsj-fish oil 1,000 mg (120 mg-180 mg) capsuleIndications:h [...] 02/25/2022 Assessment & Plan (02/25/2022 4:05 PM SENIOR SYSTEMS ARCHITECT): Chronic problem. On statin therapy, no changes. Hypertension associated with type 2 diabetes mary litus 02/25/2022 Assessment & Plan (02/25/2022 4:05 PM SENIOR SYSTEMS ARCHITECT): Controlled on current medications, no changes. Insulin pump status 02/25/2022 Assessment & Plan (02/25/2022 3:17 PM SENIOR SYSTEMS ARCHITECT): Change pump settings to: Workday: BR 2.0 [...] 12/22/2021 Assessment & Plan (02/25/2022 4:06 PM SENIOR SYSTEMS ARCHITECT): Chronic problem, significantly improving. Increase Mounjaro to [...] on file Legal Sex Male 5:27 AM SENIOR SYSTEMS ARCHITECT Gender Identity Not on file Sexual Orientation [...] 5:45 AM CDT Height 177.8 cm (5' 10) 07/22/2022 5:45 AM CDT Body Mass Index 36.99 07/22/2022 5:45 AM CDT Plan of Treatment Not on file Procedures Procedure Name Priority Date/Time Associated Diagnosis Comments POCT HEMOGLOBIN A1C Routine 02/25/2022 2 :43 PM SENIOR SYSTEMS ARCHITECT Type 2 diabetes mellitus with hyperglycemia, with long-term current use of insulin (HCC) SERUM LIPID PANEL Routine 01/20/2014 9:3 9 PM SENIOR SYSTEMS ARCHITECT from Last 3 Months or Most Recently Relevant to Health Maintenance Results * POCT hemoglobin A1c (02/25/2022 2:43 PM SENIOR SYSTEMS ARCHITECT) Hemoglobin A1C, POC 6.7 Blood 02/25/2022 2:43 PM SENIOR SYSTEMS ARCHITECT Leticia WINSTON POINT OF CARE TEST EMA HANSON Final Result * (ABNORMAL) Serum lipid panel (01/20/2014 9:39 PM SENIOR SYSTEMS ARCHITECT) Cholesterol 1080(H) 0 - 200 mg/dl HISTORICAL [...] revised on 2007. Serum 01/20/2014 9:39 PM SENIOR SYSTEMS ARCHITECT us Kamla Otero MD LAB BLOOD ORDERABLES Final Resul t HISTORICAL RESULTS from Last 3 Months or Most Recently Relevant to Health Maintenance Insurance [employer]ETNA [facility] PPO [id number] [id number] [facility] HMO [facility] PPO Care Teams Spinner Hydraulic Relationship Specialty Start Date End Date Santhosh Franco DO PCP - General Internal Medicine 08/07/21
--- OUTSIDE RECORDS SUMMARY | 2024-08-14 16:21 | XMS_ITS | Clinical Summary ---
Author Organization [facility] Address [address] [place] [address] Care Team Providers Care Industrial Sociologist Name Role Phone Santhosh Franco DO Primary Care Provider [phone] Allergies No known active allergies Medications gabapentin [...] by mouth nightly 06/15/19 23 Active omega 4-acb-elf-fish oil 1,000 mg (120 mg-180 mg) capsuleIndications:h [...] 02/25/2022 Assessment & Plan (02/25/2022 4:05 PM ADMISSIONS GATE ATTENDANT): Chronic problem. On statin therapy, no changes. Hypertension associated with type 2 diabetes mary litus 02/25/2022 Assessment & Plan (02/25/2022 4:05 PM ADMISSIONS GATE ATTENDANT): Controlled on current medications, no changes. Insulin pump status 02/25/2022 Assessment & Plan (02/25/2022 3:17 PM ADMISSIONS GATE ATTENDANT): Change pump settings to: Workday: BR 2.0 [...] 12/22/2021 Assessment & Plan (02/25/2022 4:06 PM ADMISSIONS GATE ATTENDANT): Chronic problem, significantly improving. Increase Mounjaro to [...] on file Legal Sex Male 5:27 AM ADMISSIONS GATE ATTENDANT Gender Identity Not on file Sexual Orientation [...] 5 season) 2023 11/20/2020, 10/30/2020 Influenza Vaccine (Season Ended) 2024 10/30/2020 DTaP/Tdap/Td Vaccine (2 - Td or Tdap) 09/09/2031 09/08/2021 HPV Vaccines Aged Out No longer eligi ble based on patient's age to complete this topic Procedures Procedure Name Priority Date/Time Associated Diagnosis Comments POCT HEMOGLOBIN A1C Routine 02/25/2022 2 :43 PM ADMISSIONS GATE ATTENDANT Type 2 diabetes mellitus with hyperglycemia, with long-term current use of insulin (HCC) SERUM LIPID PANEL Routine 01/20/2014 9:3 9 PM ADMISSIONS GATE ATTENDANT from Last 3 Months or Most Recently Relevant to Health Maintenance Results * POCT hemoglobin A1c (02/25/2022 2:43 PM ADMISSIONS GATE ATTENDANT) Hemoglobin A1C, POC 6.7 Blood 02/25/2022 2:43 PM ADMISSIONS GATE ATTENDANT Leticia WINSTON POINT OF CARE TEST EMA HANSON Final Result * (ABNORMAL) Serum lipid panel (01/20/2014 9:39 PM ADMISSIONS GATE ATTENDANT) Cholesterol 1080(H) 0 - 200 mg/dl HISTORICAL [...] revised on 2007. Serum 01/20/2014 9:39 PM ADMISSIONS GATE ATTENDANT Kamla Otero MD LAB BLOOD ORDERABLES Final Resul t HISTORICAL RESULTS from Last 3 Months or Most Recently Relevant to Health Maintenance Insurance [facility] CMR PPO Care Teams Industrial Sociologist Relationship Specialty Start Date End Date Santhosh Franco DO PCP - General Internal Medicine 08/07/21
== END ==
LOC: ANHLAB 15:26
PROVIDERS: PCP Clinical Nurse Specialist; Visit Provider Plastic Surgery
DX: L91.0 Hypertrophic scar (principal); D48.5 Neoplasm of uncertain behavior of skin
CPT/HCPCS: 88305

== ENCOUNTER 2025-01-02 06:32 | Emergency (ER) | payer SELFPAY ==
--- OUTSIDE RECORDS SUMMARY | 2005-06-30 18:00 | XMS_ITS | Continuity of Care Document ---
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, [address], [place], [place], [id number], [place] tel:[phone] [facility] No Information May-0 4-200 6 Kee OD Nikolas. [address] [facility] , [address], [place], [address], [place]. tel:[phone] Family History Family Member Type Diagnosis Age At Onset No Information Payers Payer name Insurance type Covered green party ID Authoriza tion(s) No Information Social History Type Description Quantity Date Captured Comments Sex Male Smoking Status No Information Chief Complaint And Reason For Visit No Information Reason For Referral Reason For Referral No Information History Of Present Illness Encounter Date Complaint History Of Prese nt Illness No Information Functional Status Date Functional Assessmen t No Information Instructions Date Instruction Additional Infor mation No Information Assessments Type Assessment Date No Information Patient Care Teams Name Effective Dates (start - stop) Status Members No Information
--- OUTSIDE RECORDS SUMMARY | 2025-01-02 06:35 | XMS_ITS | Clinical Summary ---
Author Organization [facility] Address [facility] [place] [address] Care Team Providers Care Railroad Hand Name Role Phone Santhosh Francoian Primary Care Provider Allergies No known active allergies Medications gabapentin [...] by mouth nightly 06/15/19 23 Active omega 6-jhd-irr-fish oil 1,000 mg (120 mg-180 mg) capsuleIndications:h [...] 06/14/2022 Hyperlipidemia associated with type 2 diabetes m hubert 02/25/2022 Assessment & Plan (02/25/2022 4:05 PM RADIO EQUIPMENT REPAIRER): Chronic problem. On statin therapy, no changes. Hypertension associated with type 2 diabetes mary litus 02/25/2022 Assessment & Plan (02/25/2022 4:05 PM RADIO EQUIPMENT REPAIRER): Controlled on current medications, no changes. Insulin pump status 02/25/2022 Assessment & Plan (02/25/2022 3:17 PM RADIO EQUIPMENT REPAIRER): Change pump settings to: Workday: BR 2.0 [...] 12/22/2021 Assessment & Plan (02/25/2022 4:06 PM RADIO EQUIPMENT REPAIRER): Chronic problem, significantly improving. Increase Mounjaro to [...] History Date Comments Type 2 diabetes mellitus Hypertension Hyperlipidemia Anxiety Depression [place] 2004 Family [...] on file Legal Sex Male 5:27 AM RADIO EQUIPMENT REPAIRER Gender Identity Not on file Sexual Orientation [...] <65 (1 of 2 - PCV) 2005 HPV Vaccines (1 - 3-dose SCDM series) 2013 Lipid Panel 01/20/2015 01/20/2014, 01/18/2014 Hemoglobin A1C 08/26/2022 02/25/2022, 12/22/2021 Depression Screening 12/22/2022 12/22/2021 Foot Exam 12/22/2022 12/22/2021 Covid-19 Vaccine (3 - season) 2024, 10/30/2020 Influenza Vaccine (#1) 2024 10/30/2020 DTaP/Tdap/Td Vaccine (2 - Td or Tdap) 09/09/203101/2022 Procedures Procedure Name Priority Date/Time Associated Diagnosis Comments POCT HEMOGLOBIN A1C Routine 02/25/2022 2 :43 PM RADIO EQUIPMENT REPAIRER Type 2 diabetes mellitus with hyperglycemia, with long-term current use of insulin (HCC) SERUM LIPID PANEL Routine 01/20/2014 9:3 9 PM RADIO EQUIPMENT REPAIRER from Last 3 Months or Most Recently Relevant to Health Maintenance Results * POCT hemoglobin A1c (02/25/2022 2:43 PM RADIO EQUIPMENT REPAIRER) Hemoglobin A1C, POC 6.7 Blood 02/25/2022 2:43 PM RADIO EQUIPMENT REPAIRER Leticia WINSTON POINT OF CARE TEST ORDE MARGIE Final Result * (ABNORMAL) Serum lipid panel (01/20/2014 9:39 PM RADIO EQUIPMENT REPAIRER) Cholesterol 1080(H) 0 - 200 mg/dl HISTORICAL [...] revised on 2007. Serum 01/20/2014 9:39 PM RADIO EQUIPMENT REPAIRER Kamla Otero MD LAB BLOOD ORDERABLES Final Resul t HISTORICAL RESULTS from Last 3 Months or Most Recently Relevant to Health Maintenance Insurance [employer] [facility] PPO [facility] [employer] [facility] PPO Care Teams Railroad Hand Relationship Specialty Start Date End Date Santhosh Franco DO PCP - General Internal Medicine 08/07/21
--- OUTSIDE RECORDS SUMMARY | 2025-01-02 06:36 | XMS_ITS | Patient Health Record ---
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 Name Role Phone Santhosh Franco DO Primary Care Provider Luke Vo Unavailable [phone] Magen Zapata Unavailable [phone] Allergies No Known Allergies Reason For Referral No Information Medications Medication SIG (Take, Route, Frequency, Duration) Notes Start Date End Date Status busPIRone HCl 5 MG Tablet 1 tablet Oral Twice a day; Duration: 90 days Active Trintellix 20 MG Tablet 1 tablet Orally Once a day; Duration: 30 days 07/09/2024 Active Jardiance 10 MG Tablet Oral; Duration: 9 0 Days Active traZODone HCl 100 MG Tablet TAKE 2 TABLE TS BY MOUTH AT BEDTIME; Duration: 90 Active QUEtiapine Fumarate 150 MG Tablet 1 tablet at bedtime Orally Once a day; Duration: 30 days Active Lisinopril 40 MG Tablet Oral; Duration: 90 Days Active metFORMIN HCl 1000 MG Tablet Oral; Durat ion: 90 Days Active Carvedilol 25 MG Tablet Oral; Duration: 90 Days Active Vilazodone HCl 20 MG Tablet 1 tablet wit h food Orally Once a day; Duration: 30 days 08/09/2024 Active tiZANidine HCl 6 MG Capsule Oral; Durati on: 30 Days Active Colestipol HCl 1 GM Tablet TAKE 1 TABLET BY MOUTH TWICE A DAY Oral; Duration: 90 Days Active hydroCHLOROthiazide 25 MG Tablet Oral; Duration: 90 Days Active metFORMIN HCl 1000 MG Tablet TAKE 1 TABL ET BY MOUTH TWICE A DAY Oral; Duration: 90 Days Active Immunizations Vaccine Route Administration Date Status Comme nts Pfizer [employer]ion[employer] Covid-19 Vac cine 2nd dose Unknown 10/30/2020 Administered Pfizer [employer]ion[employer] Covid-19 Vac cine 2nd dose Unknown 11/20/2020 Administered Social History Tobacco Use: Social History Observation Description Date Details (start date - stop date) Never Smoker NA - NA Sex Assigned At : Social History Observation Description Sex Assigned At Male Social History Miscellaneous: Social Info Question Answer Notes Advance Care Planning Are you your own decision-maker Yes Do you have Power of District Sales Manager for Health or Medi beth? No Tobacco Use: Social Info Question Answer Notes Tobacco Control (Standard) Tobacco use: Nonsmoker Additional Details Category Social Info Options Details Migrated Social History Migrated Social History Alcohol Intake: None 06/05/2020,Tobacco Years: Former smoker 04/29/2023 Problems Problem Type SNOMED Code ICD Code Onset Dates Problem Status W/U Status Risk Notes Problem Severe recurrent major depression without psychotic features (66296170) Major depressive disorder, recurrent severe without psychotic features (F33.2) 06/29/19 24 Active confirmed Problem Generalized anxiety disorder (00831612) Generalized anxiety disorder (F41.1) 06/29/19 24 Active confirmed Problem Primary insomnia (7308467) Primary insomnia (F51.01) 09/25/19 23 Active confirmed Problem Essential hypertension (23564255) Essential hypertension (I10) 09/04/19 22 Active confirmed Problem Hyperglycemia due to type 2 diabetes mellitus (653953859374801) Type 2 diabetes mellitus with hyperglycemia, with long-term current use of insulin (E11.65) 12/23/19 22 Active confirmed Problem Hyperlipidemia due to type 2 diabetes mellitus (disorder) (304948646178549) Hyperlipidemia associated with type 2 diabetes mellitus (E11.69) 02/26/20 22 Active confirmed Problem Peripheral circulatory disorder associated with diabetes mellitus (379687244) Hypertension associated with type 2 diabetes mellitus (E11.59) 02/26/20 22 Active confirmed Vital Signs Heart Rate 88 /min 07/02/2024 Height-cm 177.80 cm 07/02/2024 Blood pressure diastolic 90 mm Hg 07/02/2024 Weight-kg 118.39 kg 07/02/2024 Height 70.00 in 07/02/2024 Blood pressure systolic 150 mm Hg 07/02/2024 Weight 261 lbs 07/02/2024 BMI 37.45 kg/m2 07/02/2024 Encounters Encounter Location Date Provider Diagnosis [address] [facility] [address] [place] [address] 02/08/2024 Magen Zapata Generalized anxiety disorder F41.1 and Recurrent major depressive episodes, moderate F33.[address] [facility] [address] [place] [address] 03/08/2024 Luke Ayala Major depressive disorder, recurrent severe without psychotic features F33.2 ; Type 2 diabetes mellitus with hyperglycemia, with long-term current use of insulin E11.65 ; Hyperlipidemia associated with type 2 diabetes mellitus E11.69 ; Essential hypertension I10 ; Generalized anxiety disorder F41.1 and Primary insomnia F51.[address] [address] 03/12/2024 Magen Zapata Generalized anxiety disorder F41.1 and Depression, major, recurrent, moderate F33.[address] [address] 06/11/2024 Magen Zapata Encounter for screen ing for depression Z13.31 ; Generalized anxiety disorder F41.1 and Recurrent major depressive episodes, moderate F33.[address] [address] 07/02/2024 Luke Ayala Encounter for screen ing for depression Z13.31 ; Major depressive disorder, recurrent severe without psychotic features F33.2 ; Generalized anxiety disorder F41.1 ; Primary insomnia F51.01 ; Type 2 diabetes mellitus with hyperglycemia, with long-term current use of insulin E11.65 ; Hyperlipidemia associated with type 2 diabetes mellitus E11.69 ; Essential hypertension I10 ; Encounter for screening for cardiovascular disorders Z13.6 and Dietary counseling and surveillance Z71.[facility] [address] [facility] [address] [place] [address] 07/04/2024 Magen Zapata Encounter for screen ing for depression Z13.31 ; Generalized anxiety disorder F41.1 and Depression, major, recurrent, moderate F33.[address] [facility] [address] [place] [address] 08/08/2024 Magen Zapata Encounter for screen ing for depression Z13.31 ; Generalized anxiety disorder F41.1 and Depression, major, recurrent, moderate F33.1 [facility] [address] [facility] [address] [place] [address] 09/06/2024 Magen Zapata Generalized anxiety disorder F41.1 and Depression, major, recurrent, moderate F33.[address] [facility] [address] [place] [address] 10/04/2024 Luke Lucy [address] [facility] [address] [place] [address] 07/05/2024 Luke Lucy [address] [address] 12/03/2024 Luke Lucy Major depressive disorder, recurrent severe without psychotic features F33.[address] [facility] [address] [place] [address] 08/08/2024 Luke Lucy Major depressive disorder, recurrent severe without psychotic features F33.2 Assessments Encounter Date Diagnosis (ICD Code) Assessment Notes Treatment Notes Treatment Clinical Notes Section Notes 12/03/2024 Major depressive disorder, recurrent severe without psychotic features (ICD-10 - F33.2) 09/06/2024 Generalized anxiety disorder (ICD-10 - F41.1) 38 [...] 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 Relationship with mother is great per his report. Added that he had a really close relationship with father who last year of a heart attack. Noted that he was the one that father. 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 Relationship with mother is great per his report. Added that he had a really close relationship with father who last year of a heart attack. Noted that he was the one that father. 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 Relationship with mother is great per his report. Added that he had a really close relationship with father who last year of a heart attack. Noted that he was the one that father. 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 Relationship with mother is great per his report. Added that he had a really close relationship with father who last year of a heart attack. Noted that he was the one that father. 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 Relationship with mother is great per his report. Added that he had a really close relationship with father who last year of a heart attack. Noted that he was the one that father. 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 Relationship with mother is great per his report. Added that he had a really close relationship with father who last year of a heart attack. Noted that he was the one that father. 07/02/2024 Encounter for screening for depression (ICD-10 - Z13.31) 03/08/2024 Major depressive disorder, recurrent severe without [...] - Note: Patient's insurance has changed to [employer], which may affect medication coverage. Dyslipidemia - [...] medications for future appointments to avoid confusion. 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 Relationship with mother is great per his report. Added that he had a really close relationship with father who last year of a heart attack. Noted that he was the one that father. 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 Relationship with mother is great per his report. Added that he had a really close relationship with father who last year of a heart attack. Noted that he was the one that father. 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 Relationship with mother is great per his report. Added that he had a really close relationship with father who last year of a heart attack. Noted that he was the one that father. 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 Relationship with mother is great per his report. Added that he had a really close relationship with father who last year of a heart attack. Noted that he was the one that father. 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 Relationship with mother is great per his report. Added that he had a really close relationship with father who last year of a heart attack. Noted that he was the one that father. 08/08/2024 Major depressive disorder, recurrent severe without psychotic features (ICD-10 - F33.2) Electronic Prior Authorization was requested for Vilazodone HCl 20 MG Tablet. Provider can order medication once approval received. 03/08/2024 Type 2 diabetes mellitus with hyperglycemia, [...] - Note: Patient's insurance has changed to [employer], which may affect medication coverage. Dyslipidemia - [...] - Note: Patient's insurance has changed to [employer], which may affect medication coverage. Dyslipidemia - [...] medications for future appointments to avoid confusion. 07/02/2024 Primary insomnia (ICD-10 - F51.01) 07/02/2024 Type 2 diabetes mellitus with hyperglycemia, with long-term current use of insulin (ICD-10 - E11.65) 03/08/2024 Essential hypertension (ICD-10 - I10) Insomnia [...] - Note: Patient's insurance has changed to [employer], which may affect medication coverage. Dyslipidemia - [...] medications for future appointments to avoid confusion. 07/02/2024 Hyperlipidemia associated with type 2 diabetes mellitus (ICD-10 - E11.69) 03/08/2024 Generalized anxiety disorder (ICD-10 - F41.1) [...] - Note: Patient's insurance has changed to [employer], which may affect medication coverage. Dyslipidemia - [...] - Note: Patient's insurance has changed to [employer], which may affect medication coverage. Dyslipidemia - [...] medications for future appointments to avoid confusion. 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 Relationship with mother is great per his report. Added that he had a really close relationship with father who last year of a heart attack. Noted that he was the one that father. 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 Relationship with mother is great per his report. Added that he had a really close relationship with father who last year of a heart attack. Noted that he was the one that father. 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 Relationship with mother is great per his report. Added that he had a really close relationship with father who last year of a heart attack. Noted that he was the one that father. 07/02/2024 Other Harvey Crooks, currently on FMLA leave for mental and physical health concerns, presents with recent history of gut issues, chest pain, and work-related stress. Anxiety with somatic symptoms (chest pain, gastrointestinal issues) Assessment: Patient reports improvement in symptoms since taking leave from work on June 21. Recent ER visit for chest pain yielded negative results on EKG and chest x-rays, suggesting stress-related etiology. Gastrointestinal issues have also been present. Current medication regimen includes quetiapine, buspirone, and vortioxetine. Patient reports feeling better with time away from work and implementing lifestyle changes such as increased exercise and improved diet. Plan: - Continue current medication regimen: - Quetiapine (Seroquel) 150 mg PO at bedtime - Vortioxetine (Trintellix) 20 mg PO daily - Buspirone 5 mg PO twice daily - Reassess medication needs, particularly quetiapine and buspirone, as anxiety symptoms improve - Encourage continuation of lifestyle changes (exercise, diet) - Follow-up appointment in 3 months - Return to work scheduled for July 24 Disclaimer: This note has been transcribed using speech recognition software and serves as a reflection of the patient's visit. While efforts have been made to ensure accuracy, there may be errors, including program director/music director inaccuracies and misspellings of medication names. This document should not be considered a verbatim record, and any discrepancies should be verified with the provider. 07/04/2024 Other Client participated in individual psychotherapy(CBT /Supportive) related to his hx of anxiety and depression. Based on today's session continued psychotherapy is recommended with no changes to treatment plan. Client presented to session well groomed and fully oriented with no risk of harm to self or others. Client verbal and engaged through out session with improved mood and affect from previous session. Reported upon presentation that he has been not too bad since last session on 06.11.2024. Added that day after last session he was prepared to quit job and was going to give two notice but instead decided to ask for FMLA. Noted he has been off work for the three weeks and goes back on the . Session accordingly addressed client's hx of not being able to relax and not ever making self a priority in his life. Discussed childhood and relationship with parents and brother. Stated that he could never get parents approval as they were always focused on his brother who would always get passes from parents for his negative behaviors. Admitted that he has come to believe that he must always be productive. Conceded that he has been a human doing with his self esteem and self worth strongly tied to what he does(work). Client in agreement that he needs to do a much better job of self care. Client receptive to session feedback. 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 Relationship with mother is great per his report. Added that he had a really close relationship with father who last year of a heart attack. Noted that he was the one that father. 08/08/2024 Other Client participated in individual psychotherapy(CBT /Supportive) related to his hx of anxiety and depression. Based on today's session continued psychotherapy is recommended with no changes to treatment plan. Client presented to session well groomed and fully oriented with no risk of harm to self or others. Client verbal and engaged through out session with noticeable anxiety and sad affect. Reported upon presentation that he has been feeling overwhelmed since he went back to work and entertained passive suicidal ideations a few days ago(plan and intent denied). Aded that he told ramo that he wanted to get shit faced due to feeling overwhelmed. 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 Admitted that time he took off from work did not really help as nothing really has changed at work. Further admitted that he is afraid of making a mistake. Client admitted that he does not and has not valued self throughout his life but has valued a strong work ethic. Admitted that he needs to abandon hope that his work conditions are going to change and get serious about looking for other employment. Further shared that he continues viewing porn as a wey to feel better about himself but it is affecting relationship with ramo. Next session in four weeks per his request. 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 Relationship with mother is great per his report. Added that he had a really close relationship with father who last year of a heart attack. Noted that he was the one that father. 09/06/2024 Other Client participated in individual psychotherapy(CBT /Supportive) related to his hx of anxiety and depression. Based on today's session continued psychotherapy is recommended with no changes to treatment plan. Client presented to session well groomed and fully oriented with no risk of harm to self or others. Client verbal and engaged through out session but with noticeable anxiety and flat affect. Reported upon presentation that he has been hanging in since last seen on 08.08.2024. Added that it has been a tumultuous two weeks. Explained that he walked out of job after the correction officer [employer] said something to him that he took offense to. Told by his immediate supervisor of communications to take a week off and think about coming back and having a meeting with and other higher ups. Client stated that he called supervisor of communications and said he was done and needed a change. Client further spoke about his hx of conflict avoidance and relationship with arelis and wisam. Stated that he does not say how he is really feeling and has suppressed anger for most of his life. Noted that when he told his mother that he had quit his job she was quick to tell him that he had made a mistake. Added that he is constanlty thinking about due to father having of a heart attack. Client receptive to session feedback. No further sessions at this time due to him loosing insurance but added he would be back once he has a another job with benefits. 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 Relationship with mother is great per his report. Added that he had a really close relationship with father who last year of a heart attack. Noted that he was the one that father. 07/05/2024 Other Electronic Prior Authorization was requested for Trintellix 20 MG Tablet. Provider can order medication once approval received. Plan Of Treatment No Information Insurance Providers Payer Name Payer Address Payer Phone Subscriber Number Group Number Insured Name Patient Relationship to Insured Coverage Start Date Coverage End Date [facility] [address] [place] [address] [phone] [id number] HARVEY CROOKS Self - patient is the insured [facility] [address] [place] [address] [phone] [id number] HARVEY CROOKS Self - patient is the insured Medical (General) History Medical History History ICD Code Problems: Chronic post-traumatic stress disorder Diabetes mellitus Essential hypertension Generalized anxiety disorder Hypercholesterolemia Hyperlipidemia Primary insomnia Severe recurrent major depression withou t psychotic features Type 1 diabetes mellitus , Surgical History Surgery Date(Month/Year) Other 07/22/2022 Reconstructive surgery 07/22/2022
--- OUTSIDE RECORDS SUMMARY | 2025-01-02 06:36 | XMS_ITS | Clinical Summary ---
Author Organization [facility] Address [address] [place] [address] Phone Care Team Providers Care Gravity Meter Observer Name Role Phone Santhosh Franco DO Primary Care Provider [phone] Allergies No known active allergies Medications amLODIPine [...] Due Date Last Done Comments Influenza Vaccine (#1) 2024 Insurance [facility] Care Teams Gravity Meter Observer Relationship Specialty Start Date End Date Santhosh Franco DO [address] [place] [id number] PCP - General Internal Medicine 08/04/21
[2025-01-02 06:40] VITALS: BP 155/93; PULSE 77; RESP 18; TEMP 36.6; O2SAT 99
--- OUTSIDE RECORDS SUMMARY | 2025-01-02 08:03 | XMS_ITS | Clinical Summary ---
Author Organization [facility] Address [address] [place] [address] Phone Care Team Providers Care Finishing Room Supervisor Name Role Phone Santhosh Franco DO Primary Care Provider [phone] Allergies No known active allergies Medications amLODIPine [...] Done Comments Influenza Vaccine (#1) 2024 Insurance [facility] Care Teams Finishing Room Supervisor Relationship Specialty Start Date End Date Santhosh Franco DO [address] [place] [id number] PCP - General Internal Medicine 08/04/21
--- OUTSIDE RECORDS SUMMARY | 2025-01-02 08:03 | XMS_ITS | Clinical Summary ---
Author Organization [facility] Address [facility] [place] [address] Care Team Providers Care Environmental Conservation Officer Name Role Phone Santhosh Francoian Primary Care [...] by mouth nightly 06/15/19 23 Active omega 8-wqk-zqn-fish oil 1,000 mg (120 mg-180 mg) capsuleIndications:h [...] 02/25/2022 Assessment & Plan (02/25/2022 4:05 PM SOLE POLISHER): Chronic problem. On statin therapy, no changes. Hypertension associated with type 2 diabetes mary litus 02/25/2022 Assessment & Plan (02/25/2022 4:05 PM SOLE POLISHER): Controlled on current medications, no changes. Insulin pump status 02/25/2022 Assessment & Plan (02/25/2022 3:17 PM SOLE POLISHER): Change pump settings to: Workday: BR 2.0 [...] 12/22/2021 Assessment & Plan (02/25/2022 4:06 PM SOLE POLISHER): Chronic problem, significantly improving. Increase Mounjaro to [...] on file Legal Sex Male 5:27 AM SOLE POLISHER Gender Identity Not on file Sexual Orientation [...] HEMOGLOBIN A1C Routine 02/25/2022 2 :43 PM SOLE POLISHER Type 2 diabetes mellitus with hyperglycemia, with long-term current use of insulin (HCC) SERUM LIPID PANEL Routine 01/20/2014 9:3 9 PM SOLE POLISHER from Last 3 Months or Most Recently Relevant to Health Maintenance Results * POCT hemoglobin A1c (02/25/2022 2:43 PM SOLE POLISHER) Hemoglobin A1C, POC 6.7 Blood 02/25/2022 2:43 PM SOLE POLISHER Leticia WINSTON POINT OF CARE TEST ORDE MARGIE Final Result * (ABNORMAL) Serum lipid panel (01/20/2014 9:39 PM SOLE POLISHER) Cholesterol 1080(H) 0 - 200 mg/dl HISTORICAL [...] revised on 2007. Serum 01/20/2014 9:39 PM SOLE POLISHER Kamla Otero MD LAB BLOOD ORDERABLES Final Resul t HISTORICAL RESULTS from Last 3 Months or Most Recently Relevant to Health Maintenance Insurance [employer] [facility] PPO [employer] H[employer] [facility] PPO Care Teams Environmental Conservation Officer Relationship Specialty Start Date End Date Santhosh Franco DO PCP - General Internal Medicine 08/07/21
--- NOTE | 2025-01-02 08:17 | ED.WOUNDLAC ---
HPI - Wound/Laceration General Chief Complaint: Wound/Laceration Stated Complaint: lac to left thumb Time Seen by Provider: 01/02/25 07:31 Source: patient Mode of arrival: ambulatory Limitations: no limitations History of Present Illness HPI narrative: [id number] male presents with a left thumb laceration he sustained last evening around 6 or 7:00 p.m. when a knife slipped while he was cutting tomatoes. His spouse is a medic and he held pressure and she had initially applied liquid skin followed by a cushioned bandage. Not on anticoagulation. He states his tetanus is up-to-date as of the past 5 years. He reports his pain is 1/10 in severity. Bleeding had been controlled however this morning when he went to put his boots on it did start bleeding again and this is why he presents to the emergency department although he had tried to refrain from doing so as he does not currently have insurance. Related Data Home Medications ?Medication ?Instructions ?Recorded ?Confirmed ?Last Taken ?Type buspirone 5 mg tablet 5 mg PO BID 08/17/23 07/19/24 Unknown History amlodipine 5 mg tablet 5 mg PO DAILY 10/05/23 07/19/24 Unknown History Allergies Allergy/AdvReac Type Severity Reaction Status Date / Time cat dander Allergy Unknown Verified 10/02/24 15:15 [facility] Past Medical History Medical History (Updated 01/02/25 @ 20:31 by Dariela Smith MD) Right hand dominant Skin lesion of left external ear Male hypogonadism Encounter for monitoring testosterone replacement therapy Asthma Irregular heart beat Depression Insomnia Essential hypertension Type 2 diabetes mellitus without complication, with long-term current use of insulin Hypercholesterolemia with hypertriglyceridemia Surgical History Surgical History Hx of tympanostomy tubes H/O rhinoplasty Family History Family History Father Hypertension Mother Hypertension Skin cancer Social History Social History (Updated 01/02/25 @ 20:32 by Dariela Smith MD) Social History: Caffeine-occasional energy drink Alcohol intake: former Substance use: current Substance use type: marijuana Other substance usage details: edibles occas Do You Feel Safe in your Home?: Yes Lack of Transportation: No Lack of Food: Never True Current Housing: I Have Housing Concerned About Future Housing: No Difficulty Paying Gas/Electric Bills: No Difficulty Paying for Meds: No Currently Unemployed: No Education: High School Diploma/GED Difficulty w/ Childcare or Family Care: No Living arrangements: with family Additional living arrangements comments: 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 HEAD: Normocephalic, atraumatic. EYES: Non injected, non icteric ENT: Nares clear, no rhinorrhea or epistaxis. Gross auditory acuity intact. NECK: Supple. No meningismus. CHEST: Speaking in full sentences. No respiratory distress. HEART: Regular rate and rhythm. . ABDOMEN: Soft, nondistended. No rigidity or guarding. Not peritoneal EXTREMITIES: Normal range of motion. No edema. No nail involvement. Finger warm and well perfused. SKIN: Warm, dry. 2cm laceration , bleeding well controlled. NEURO: No focal deficits. Alert and oriented. Answering questions. Following commands. Normal speech without aphasia or dysarthria. PSYCH: Normal mood and affect. Course Vital Signs Vital signs: Vital Signs Temperature 98 F 01/02/25 06:40 Pulse Rate 77 01/02/25 06:40 Respiratory Rate 18 01/02/25 06:40 Blood Pressure 155/93 H 01/02/25 06:40 Pulse Oximetry 99 01/02/25 06:40 Oxygen Delivery Room Air 01/02/25 06:40 Temperature 98 F 01/02/25 06:40 Pulse Rate 73 01/02/25 10:17 Respiratory Rate 17 01/02/25 10:17 Blood Pressure 141/90 H 01/02/25 10:17 Pulse Oximetry 100 01/02/25 10:17 Oxygen Delivery Room Air 01/02/25 06:40 Procedures Laceration Laceration 1: Date: 01/02/25 Time: 09:45 Site: hand Side (If applicable): left Size (cm): 2 Description: linear Depth: simple, single layer Local Anesthetic: none Pre-repair: wound explored and irrigated (NS and H2O2) ====== Skin Level ====== Skin layer closed with: dermabond ====== Subcutaneous Layer ====== ====== Muscle Layer ====== ====== Tendon Layer ====== MDM - Wound/Laceration MDM Narrative Medical decision making narrative: Kxghb-[id number] male presents with a thumb laceration he sustained last evening around 6 or 7:00 p.m. accidentally while the knife slipped while cutting tomatoes. 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 In the emergency department he is afebrile with vital signs notable for hypertension. Tetanus UTD in the past 5 years per patient. Wound is fairly superficial. Discussed the option of stitches although that dermabond/skin glue will likely be sufficient. Lac repair as above. Patient tolerates well. Wound allowed to dry. Discussed appropriate wound care as well as return precautions. Metal finger splint applied only to help protect the area over the next 24 hours. 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 Otherwise stable for discharge. Provided Rx for OTC acetaminophen. Differential Diagnosis Differential diagnosis: Likely laceration and avulsion of skin Discharge Plan Discharge Clinical Impression: Laceration of left thumb Qualifiers: Encounter type: initial encounter Damage to nail status: without damage Foreign body presence: without foreign body Qualified Code(s): S61.012A - Laceration without foreign body of left thumb without damage to nail, initial encounter Patient Disposition: Home Condition: Stable Instructions: Antibiotic Form, Finger Laceration (ED), Skin Adhesive Care (ED) Additional Instructions: Continue taking your medications as prescribed. Acetaminophen/Tylenol is safe to take for pain. The skin glue should dry off and flake off in the next several days. Follow-up with your primary care provider as needed. Return to the emergency department any new or worsening symptoms. Patient Language: Armenian Prescriptions: New acetaminophen 500 mg capsule 1,000 mg PO Q6H PRN (Reason: pain) Qty: 30 0RF No Action gabapentin 300 mg capsule 300 mg PO TID Qty: 270 1RF (DME) needle (disp) 18 G 18 gauge x 1 needle See Rx Instructions .ROUTE .MEDSUPPLY Qty: 100 0RF Rx Instructions: Use to Draw up testosterone Q 2 Weeks (DME) Syringe 3cc/22Gx3/4 3 mL 22 gauge x 3/4 syringe See Rx Instructions .ROUTE .MEDSUPPLY Qty: 100 0RF Rx Instructions: Use to inject testosterone Q week amlodipine 5 mg tablet 5 mg PO DAILY buspirone 5 mg tablet 5 mg PO BID Jardiance 10 mg tablet 10 mg PO DAILY Qty: 90 1RF trazodone 100 mg tablet 100 mg PO QHS Qty: 90 3RF sildenafil 50 mg tablet 50 mg PO DAILY MDD 100mg PRN (Reason: sexual activity) Qty: 10 3RF Rx Instructions: administer 30 minutes to 4 hours before activity (DME) FreeStyle Dior 14 Day Sensor Kit See Rx Instructions .ROUTE .MEDSUPPLY Qty: 3 0RF Rx Instructions: Use to check blood sugar with meter. testosterone cypionate 200 mg/mL oil 180 mg IM WEEKLY Qty: 4 2RF colestipol 1 gram tablet See Rx Instructions .ROUTE .COMPLEX Qty: 180 1RF Dose Instruction: TAKE 1 TABLET BY MOUTH TWICE A DAY Rx Instructions: TAKE 1 TABLET BY MOUTH TWICE A DAY carvedilol 25 mg tablet See Rx Instructions .ROUTE .COMPLEX Qty: 180 3RF Dose Instruction: TAKE ONE TABLET BY MOUTH EVERY 12 HOURS WITH A MEAL/FOOD Rx Instructions: TAKE ONE TABLET BY MOUTH EVERY 12 HOURS WITH A MEAL/FOOD (DME) insulin syringe-needle U-100 1 mL 28 gauge x 1/2 syringe See Rx Instructions .Route Qty: 100 2RF Rx Instructions: Use to inject Insulin omega 2-bvt-vlu-fish oil 1,000 (120-180) mg capsule 4 cap PO DAILY Qty: 120 2RF fenofibrate nanocrystallized 145 mg tablet 145 mg PO DAILY Qty: 90 1RF Rx Instructions: DUE FOR APPOINTMENT IN DECEMBER atorvastatin 80 mg tablet 80 mg PO DAILY Qty: 90 0RF Rx Instructions: Please call the office for an appointment. insulin aspart U-100 [Novolog U-100 Insulin aspart] 100 unit/mL solution 1 sliding scale dose subcut USEASDIRECTD Qty: 4 5RF Rx Instructions: Use to inject via insulin pump, MMD 180 lisinopril 40 mg tablet 40 mg PO DAILY Qty: 90 1RF hydrochlorothiazide 25 mg tablet 25 mg PO DAILY Qty: 90 1RF Rx Instructions: Take 1 tablet by mouth once daily. metformin 1,000 mg tablet 1,000 mg PO BID Qty: 180 1RF Mounjaro 5 mg/0.5 mL pen injector 5 mg subcut WEEKLY Qty: 2 0RF tizanidine 6 mg capsule 6 mg PO BID PRN (Reason: muscle spasticity) Qty: 60 0RF Follow-up/Referrals: Marita Aviles APRN, RHEUMATOLOGY NURSE-C [Primary Care Provider, Internal Medicine] Stand Alone Forms: Work/School Release IP Time of Disposition: 09:52
[2025-01-02] MEDS: HYDROGEN PEROXIDE 3% SOLN(*SP) 473 ML BOTTLE 100 ML IRRIGATION (08:37)
[2025-01-02] MEDS: ACETAMINOPHEN 500 MG TABLET 1000 MG PO (08:37)
[2025-01-02 10:17] VITALS: BP 141/90; PULSE 73; RESP 17; O2SAT 100
== END 2025-01-02 10:25 | disposition home or self-care (01) ==
PROVIDERS: Emergency Provider Student in an Organized Health Care Education/Training Program; PCP Clinical Nurse Specialist
DX: S61.012A Laceration without foreign body of left thumb without damage to nail, initial encounter (principal); J45.909 Unspecified asthma, uncomplicated; I10 Essential (primary) hypertension; E11.9 Type 2 diabetes mellitus without complications; E78.00 Pure hypercholesterolemia, unspecified; E78.1 Pure hyperglyceridemia; F32.A Depression, unspecified; Z79.899 Other long term (current) drug therapy; Z79.84 Long term (current) use of oral hypoglycemic drugs; Z79.4 Long term (current) use of insulin; Z79.85 Long-term (current) use of injectable non-insulin antidiabetic drugs; W26.0XXA Contact with knife, initial encounter; Y93.G1 Activity, food preparation and clean up
CPT/HCPCS: 12001; 29130; 99283; A9270